=== PATIENT | female | born 1995 | race Caucasian/White ===

== ENCOUNTER 2017-02-09 11:47 | Emergency (ER) | payer SELFPAY ==
[~2017-02-09] VITALS: Ht 172.7 cm; Wt 57.6 kg
[~2017-02-09 11:47] MED LIST: AC325T PO; ACET100V3 MC; BIRTH CONTROL PILL; METH4TAB PO; SULF1TAB38 PO
[2017-02-09] MEDS ORDERED: LIDOCAINE 1% INJ 20 ML (XYLOCAINE) VIAL INJ ONE (12:15)
[2017-02-09] MEDS ORDERED: OXYMETAZOLINE (AFRIN) 0.05% NA 15 ML BTL ONE (12:15)
[2017-02-09] MEDS ORDERED: cefTRIAXone 1 GM (ROCEPHIN) VIAL IM ONE (12:15)
[2017-02-09] MEDS ORDERED: CEFD300C3 PO (12:15)
--- NOTE | 2017-02-09 12:15 | ED Cough/URI ---
General Chief Complaint: Cough/Cold/Flu Symptoms Stated Complaint: SINUS CONGESTION EARACHE SORE THROAT Nursing Triage Note: ARRIVED VIA AMB TO ROOM 05. STATES SHE HAS BEEN DEALING WITH A SINUS INFECTION FOR OVER 1 WEEK. COMPLAINS OF HEADACHE, EARACHE, AND NECK PAIN WHEN SHE TURNS HER HEAD. DENIES FEVER. Source: patient Exam Limitations: no limitations History of Present Illness Time seen by provider: 11:58 Initial Comments 21-year-old female patient presents to the emergency department with complaints of a sinus infection for approximately one week. States she has had green nasal drainage. Also reports left ear pain, headache, and now beginning to have mild neck pain. Denies fever, chills, shortness of air, difficulty swallowing, difficulty breathing, nausea, vomiting, or diarrhea. Timing/Duration: week, getting worse Severity/Quality: moderate, dry cough Prior Episodes/Possible Cause: no prior episodes Modifying Factors: Worse With Coughing Allergies and Home Medications Allergies Coded Allergies: No Known Drug Allergies (Unverified , 11/28/11) Home Medications Cefdinir 300 Mg Capsule, 300 MG PO BID, #20 Ref 0 Prescribed by: KARRIE LAWSON on 02/09/17 1215 Constitutional: No chills, No dizziness, No fever, malaise EENTM: ear pain, nose congestion, nose pain, see HPI, No ear discharge, No mouth pain, No throat pain Respiratory: cough, No phlegm, No short of breath Cardiovascular: no symptoms reported Gastrointestinal: No abdominal pain, No diarrhea, No nausea, No vomiting Genitourinary: no symptoms reported Musculoskeletal: see HPI, No back pain, neck pain Skin: no symptoms reported Psychiatric/Neurological: Headache All Other Systems Reviewed Negative Unless Noted: Yes (Negative excepted noted.) Past Cszyiez-Njdaws-Vahzlw Hx Patient Social History Alcohol Use: Rarely Uses Recreational Drug Use: No Smoking Status: Current Someday Smoker Type Used: Cigars Former Smoker/When Quit: Jul 23, 2015 Recent Foreign Travel: No Contact w/Someone Who Travel: No Recent Infectious Disease Expo: No Recent Hopitalizations: No Immunizations Up To Date Tetanus Booster (TDap): Unknown Seasonal Allergies Seasonal Allergies: Yes Surgeries HX Surgeries: No Respiratory Hx Respiratory Disorders: No Cardiovascular Hx Cardiac Disorders: No Neurological Hx Neurological Disorders: No Reproductive System Hx Reproductive Disorders: No Sexually Transmitted Disease: No Female Reproductive Disorders: Denies Genitourinary Hx Genitourinary Disorders: No Gastrointestinal Hx Gastrointestinal Disorders: No Musculoskeletal Hx Musculoskeletal Disorders: No Endocrine Hx Endocrine Disorders: No HEENT HX ENT Disorders: No Cancer Hx Cancer: No Psychosocial Hx Psychiatric Problems: No Integumentary HX Skin/Integumentary Disorder: No Blood Transfusions Hx Blood Disorders: No Reviewed Nursing Assessment Reviewed/Agree w Nursing PMH: Yes Family Medical History Significant Family History: No Pertinent Family Hx Physical Exam Vital Signs Vital Sign - Last 12Hours 02/09/17 11:50 Temp 99.0 Pulse 92 Resp 16 B/P (MAP) 118/77 Pulse Ox 97 O2 Delivery Room Air Capillary Refill : Less Than 3 Seconds General Appearance: WD/WN, no apparent distress HEENT: PERRL/EOMI, TMs normal, pharyngeal erythema, other (positive nasal congestion. 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 (02/09/17 21:00) Oxymetazoline 0.05% Nasal [place] (Afrin 0. (02/09/17 12:15) Medications Given in ED Current Medications Medications Dose Ordered Sig/Leonora Route Start Time Stop Time Status Last Admin Dose Admin Ceftriaxone Sodium 1,000 mg ONCE ONCE IM 02/09/17 12:15 02/09/17 12:16 DC 02/09/17 12:27 1,000 MG Lidocaine HCl 2.1 ml ONCE ONCE INJ 02/09/17 12:15 02/09/17 12:16 DC 02/09/17 12:27 2.1 ML Oxymetazoline HCl 15 ml STK-MED ONCE .ROUTE 02/09/17 12:15 02/09/17 12:18 DC 02/09/17 12:27 15 ML Vital Signs/I&O Vital Sign - Last 12Hours 02/09/17 02/09/17 02/09/17 11:50 11:50 12:57 Temp 99.0 100.3 Pulse 92 75 Resp 16 16 B/P (MAP) 118/77 Pulse Ox 97 99 O2 Delivery Room Air Blood Pressure Mean: 91 Departure Communication Progress Notes Patient seen and evaluated. Patient given 1 g Rocephin in the emergency department prior to discharge. All return precautions were discussed with the patient. Patient voices understanding and agrees with the treatment plan. Impression Impression: Primary Impression: Sinusitis, acute Qualified Codes: J01.10 - Acute frontal sinusitis, unspecified Disposition: HOME, SELF-CARE Condition: Improved Departure-Patient Inst. Decision time for Depature: 12:13 Referrals: NO,LOCAL PHYSICIAN (PCP/Family) Primary Care Physician Patient Instructions: Sinusitis, Adult (DC) Add. Discharge Instructions: All discharge instructions reviewed with patient and/or family. Voiced understanding. Medications as instructed. Tylenol Extra Strength [id number] as directed for pain or headache. Ibuprofen 800 mg by mouth every 8 hours as needed for pain or headache. Cool humidifier. Afrin [id number]-olu-mylwppa 2-3 sprays in each nostril twice daily as needed for nasal congestion. Snts-roe-dppdhzw antihistamines and cough suppressants as instructed for symptoms. Follow-up with your family practitioner for recheck if needed. Return to the emergency department for worsened symptoms or any other concerns. Scripts Cefdinir (Cefdinir) 300 Mg Capsule 300 MG PO BID, #20 CAP 0 Refills Prov: KARRIE LAWSON 02/09/17 Work/School Note: Local [employer]ing, Work Release Form Date Seen in the Emergency Department: Feb 09, 2017 Return to Work: Feb 11, 2017 Restrictions: No Restrictions KARRIE LAWSON Feb 09, 2017 12:15
[2017-02-09 12:57] VITALS: BP 119/82
[2017-02-09] MEDS ORDERED: OXYMETAZOLINE (AFRIN) 0.05% NA 15 ML BTL SCH (21:00)
== END 2017-02-09 12:57 | disposition home or self-care (01) ==
LOC: EDUNIT# 11:47 → ER 11:50
DX: J01.90 Acute sinusitis, unspecified (principal); H92.02 Otalgia, left ear; F17.210 Nicotine dependence, cigarettes, uncomplicated
CPT/HCPCS: 96372; 99282

== ENCOUNTER 2017-03-25 12:27 | Emergency (ER) | payer SELFPAY ==
[~2017-03-25] VITALS: Ht 172.7 cm; Wt 57.6 kg
[~2017-03-25 12:27] MED LIST changes: +CEFD300C3 PO
[2017-03-25 12:58] LABS: BILIRUBIN,URINE NEGATIVE (NEGATIVE); KETONES,URINE NEGATIVE (NEGATIVE); LEUKOCYTE ESTERASE ,URINE 1+ (NEGATIVE); NITRITE,URINE NEGATIVE (NEGATIVE); PH,URINE 6 (5-9); PROTEIN,URINE 1+ (NEGATIVE); UROBILINOGEN,URINE NORMAL (NORMAL)
--- NOTE | 2017-03-25 13:08 | ED GU-Female ---
General Chief Complaint: -Female Stated Complaint: POSS VAGINAL INFECTION Nursing Triage Note: PT STATES SHE FEELS SHE HAS A VAGINAL INFECTION, HX OF LAST YR, HAS AN ODOR, MORE WATERY, DENIES PAIN, MILD ITCHING STARTED YESTERDAY. Nursing Sepsis Screen: No Definite Risk Source: patient Exam Limitations: no limitations History of Present Illness Time seen by provider: 12:39 Initial Comments This 21-year-old young lady presents to the emergency room with complaint of watery vaginal discharge. She had some mild vaginal itching yesterday. Symptoms have only been present since yesterday. LMP was about one month ago. She reports being sexually active with 2 partners in the last year. She is not using barrier protection with her current boyfriend. She does have a prior history of bacterial vaginosis and chlamydia. She denies any pain, dysuria, or other symptoms. Allergies and Home Medications Allergies Coded Allergies: No Known Drug Allergies (Unverified , 11/28/11) Home Medications Cefdinir 300 Mg Capsule, 300 MG PO BID, #20 Ref 0 Prescribed by: KARRIE LAWSON on 02/09/17 1215 Metronidazole 500 Mg Tablet, 500 MG PO BID, #14 Prescribed by: JUDY HAGER on 03/25/17 1345 Constitutional: no symptoms reported EENTM: no symptoms reported Respiratory: no symptoms reported Cardiovascular: no symptoms reported Gastrointestinal: no symptoms reported Genitourinary: see HPI Musculoskeletal: no symptoms reported Skin: no symptoms reported Psychiatric/Neurological: No Symptoms Reported Endocrine: No Symptoms Reported Past Lohgbgb-Oycdmx-Efkfgx Hx Patient Social History Alcohol Use: Occasionally Uses Recreational Drug Use: Yes (THC) Smoking Status: Current Everyday Smoker Type Used: Cigarettes Former Smoker/When Quit: Jul 23, 2015 Recent Foreign Travel: No Contact w/Someone Who Travel: No Recent Infectious Disease Expo: No Recent Hopitalizations: No Immunizations Up To Date Tetanus Booster (TDap): Unknown Seasonal Allergies Seasonal Allergies: Yes Surgeries HX Surgeries: No Respiratory Hx Respiratory Disorders: No Cardiovascular Hx Cardiac Disorders: No Neurological Hx Neurological Disorders: No Reproductive System : No Hx Reproductive Disorders: No Sexually Transmitted Disease: No Female Reproductive Disorders: Denies Genitourinary Hx Genitourinary Disorders: No Gastrointestinal Hx Gastrointestinal Disorders: No Musculoskeletal Hx Musculoskeletal Disorders: No Endocrine Hx Endocrine Disorders: No HEENT HX ENT Disorders: No Cancer Hx Cancer: No Psychosocial Hx Psychiatric Problems: No Integumentary HX Skin/Integumentary Disorder: No Blood Transfusions Hx Blood Disorders: No Family Medical History Significant Family History: No Pertinent Family Hx Physical Exam Vital Signs Vital Sign - Last 12Hours 03/25/17 12:39 Temp 99.0 Pulse 84 Resp 20 B/P (MAP) 122/90 Pulse Ox 98 O2 Delivery Room Air Capillary Refill : Less Than 3 Seconds General Appearance: WD/WN, no apparent distress Respiratory: respiratory distress Gastrointestinal: non tender, soft Genital/Rectal: normal genital exam, normal vaginal exam, No tenderness Extremities: normal inspection, no pedal edema 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, no motor/sensory deficits, alert, normal mood/affect, oriented x 3 Skin: normal color, warm/dry Progress/Results/Core Measures Results/Orders Lab Results Laboratory Tests Test 03/25/17 12:45 03/25/17 13:04 Range/Units Urine Color YELLOW Urine Clarity CLEAR Urine pH 6 5-9 Urine Specific Pope 1.020 1.016-1.022 Urine Protein 1+ H NEGATIVE Urine Glucose (UA) NEGATIVE NEGATIVE Urine Ketones NEGATIVE NEGATIVE Urine Nitrite NEGATIVE NEGATIVE Urine Bilirubin NEGATIVE NEGATIVE Urine Urobilinogen NORMAL NORMAL MG/DL Urine Leukocyte Esterase 1+ H NEGATIVE Urine RBC (Auto) 1+ H NEGATIVE Urine RBC NONE /HPF Urine WBC 2-5 /HPF Urine Squamous Epithelial Cells 10-25 H /HPF Urine Crystals NONE /LPF Urine Bacteria TRACE /HPF Urine Casts PRESENT /LPF Urine Hyaline Casts 2-5 H /LPF Urine Mucus SMALL H /LPF Urine Culture Indicated NO Micro Results Microbiology 03/25/17 Genital Culture, Resulted Pending 03/25/17 EPHRAIM Preparation - Final, Resulted 03/25/17 Wet Prep - Final, Resulted My Orders Orders - JUDY MOORE MD Ua Culture If Indicated (03/25/17 12:38) Wet Prep (03/25/17 12:45) Neisseria Gonorrhea Dna (03/25/17 12:45) Chlamydia Dna (03/25/17 12:45) Genital Culture (03/25/17 12:45) Ephraim Prep (03/25/17 12:45) Urine Bedside (03/25/17 12:45) Vital Signs/I&O Vital Sign - Last 12Hours 03/25/17 12:39 Temp 99.0 Pulse 84 Resp 20 B/P (MAP) 122/90 Pulse Ox 98 O2 Delivery Room Air Blood Pressure Mean: 101 Progress Note : Time: 13:08 Progress Note Pelvic exam performed and unremarkable. Urine test negative. Preliminary vaginal specimens pending. Departure Impression Impression: Primary Impression: Bacterial vaginosis Disposition: HOME, SELF-CARE Condition: Stable Departure-Patient Inst. Decision time for Depature: 13:44 Referrals: NO,LOCAL PHYSICIAN (PCP/Family) Primary Care Physician Patient Instructions: Bacterial Vaginosis (DC) Add. Discharge Instructions: Complete your antibiotic as prescribed. Follow-up on the final vaginal cultures by contacting the ER or your doctor early next week. Return to the ER. Worsening symptoms. No intercourse or anything intravaginally until final cultures are known. All discharge instructions reviewed with patient and/or family. Voiced understanding. Scripts Metronidazole (Flagyl) 500 Mg Tablet 500 MG PO BID, #14 TAB Prov: JUDY MOORE MD 03/25/17 JUDY MOORE MD Mar 25, 2017 13:08
[2017-03-25] MEDS ORDERED: METR500T PO (13:45)
[2017-03-25 13:53] VITALS: BP 112/84
== END 2017-03-25 13:53 | disposition home or self-care (01) ==
LOC: EDUNIT# 12:27 → ER 12:30
DX: N76.0 Acute vaginitis (principal); F17.210 Nicotine dependence, cigarettes, uncomplicated
CPT/HCPCS: 36415; 81000; 84703; 87070; 87210; 87491; 87591; 99285

== ENCOUNTER 2017-11-10 12:17 | Inpatient (IN) | payer SELFPAY ==
[2017-11-10] VITALS (10 sets, daily range): BP systolic 105–129; BP diastolic 69–93
[~2017-11-10] VITALS: Ht 170.2 cm; Wt 59.0 kg
[~2017-11-10 12:17] MED LIST changes: +METR500T PO
--- OUTSIDE RECORDS SUMMARY | 2017-11-10 12:24 | XMS REPORT ---
Author Author TOMASA BROWN [facility] Address [address] [place] [address] Care Team Providers Care Office Messenger Name Role Phone TOMASA BROWN Unavailable PROBLEMS Type Condition ICD9-CM Code [id number] Code Onset Dates Condition Status SNOMED Code Problem Major depressive disorder F32.9 Active 668099452 Problem History of liver failure Z87.19 Active 027167354 ALLERGIES Unknown Allergies SOCIAL HISTORY No smoking Hx information available PLAN OF CARE VITAL SIGNS MEDICATIONS Medication Instructions Dosage Frequency Start Date End Date Duration Status Flagyl 500 MG Orally twice a day 1 tablet 12h Oct, Oct, 7 days Active RESULTS No Results PROCEDURES No Known procedures IMMUNIZATIONS No Known Immunizations
--- OUTSIDE RECORDS SUMMARY | 2017-11-10 12:24 | XMS REPORT | Clinical Summary ---
Author Author [facility] Organization [facility] Address Unknown Phone Unavailable Care Team Providers Care Sales Agent Protective Service Name Role Phone PCP Unavailable Source Comments Some departments are not documenting in the electronic medical record. If you do not see the information that you expected, contact Release of Information in the Health Information Management department at [phone] for further assistance in locating additional records.[facility] Allergies No Known Allergies Current Medications Prescription Sig. Disp. Refills Start End Date Status Date citalopram (CELEXA) 10 mg Take 1 Tab by mouth 90 Tab 3 09/06/20 Active tablet daily. 15 Active Problems Problem Noted Date Major depressive disorder 09/02/2015 Major depressive disorder, single episode, severe (HCC) 08/29/2015 Resolved Problems Problem Noted Date Resolved Date Tylenol ingestion 08/29/2015 09/02/2015 Major depressive disorder, recurrent episode, severe (HCC) 08/29/201503/2015 Social History Tobacco Use Types Packs/Day Years Used Date Never Assessed Sex Assigned at Date Recorded Not on file Last Filed Vital Signs Vital Sign Reading Time Taken Blood Pressure 121/74 09/06/2015 9:00 AM AUDIO DIRECTOR Pulse 82 09/06/2015 9:00 AM AUDIO DIRECTOR Temperature 36.9 C (98.4 F) 09/06/2015 9:00 AM AUDIO DIRECTOR Respiratory Rate - - Oxygen Saturation 100% 09/06/2015 9:00 AM AUDIO DIRECTOR Inhaled Oxygen - - Concentration Weight 59.6 kg (131 lb 8 oz) 09/02/2015 5:35 PM AUDIO DIRECTOR Height 170.2 cm (5' 7") 09/02/2015 5:35 PM AUDIO DIRECTOR Body Mass Index 20.6 09/02/2015 5:35 PM AUDIO DIRECTOR Plan of Treatment Health Maintenance Due Date Last Done Comments PHYSICAL (COMPREHENSIVE) 2003 EXAM HPV VACCINES (1 of 3 - 2007 Female 3 Dose Series) PERTUSSIS VACCINE 2007 TETANUS VACCINE 2013 INFLUENZA VACCINE 05/24/2017 CERVICAL CANCER SCREENING 2017 Results Not on filefrom Last 3 Months
--- OUTSIDE RECORDS SUMMARY | 2017-11-10 12:24 | XMS REPORT ---
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
--- OUTSIDE RECORDS SUMMARY | 2017-11-10 12:24 | XMS REPORT ---
Author Author TOMASA BROWN Organization [facility] Address [address] [place] [address] Care Team Providers Care Ladderman Name Role Phone TOMASA BROWN Unavailable PROBLEMS Type Condition ICD9-CM Code [id number] Code Onset Dates Condition Status SNOMED Code Problem Major depressive disorder F32.9 Active 015810420 Problem History of liver failure Z87.19 Active 122811617 ALLERGIES No Known Allergies SOCIAL HISTORY Never Assessed PLAN OF CARE Activity Details Follow Up 1 Year with [facility] for [employer] and pap Reason: VITAL SIGNS Height 67 in 2016-11-15 Weight 127.0 lbs 2016-11-15 Temperature 98.4 degrees Fahrenheit 2016-11-15 Heart Rate 70 bpm 2016-11-15 Respiratory Rate 16 2016-11-15 BMI 19.89 kg/m2 2016-11-15 Blood pressure systolic 110 mmHg 2016-11-15 Blood pressure diastolic 72 mmHg 2016-11-15 MEDICATIONS Medication Instructions Dosage Frequency Start Date End Date Duration Status Ortho Tri-Cyclen (28) 0.18/0.215/0.25 MG-35 MCG Orally Once a day 1 tablet 24h Oct, 28 day(s) Active Diflucan 150 MG Orally once 1 tablet today then again in 3 days if symptoms do not improve Oct, Oct, 1 day Active RESULTS Name Result Date Reference Range TRICHOMONAS (IN HOUSE) 2016-11-15 TRICHOMONAS Negative Control + Lot # [id number] Exp date 12/21/2017 BACTERIAL VAGINOSIS (IN HOUSE) 2016-11-15 RESULTS Positive Control + Lot # [id number] Exp date CULTURE, GENITAL 2016-11-15 Genital Culture, Routine Final report Result 1 GC/CHLAM PROBE (STATE) 2016-11-15 CHLAMYDIA positive GC negative PROCEDURES Procedure Date Ordered Result Body Site No Charge Nov 15, 2016 IBANEZ VAG, DNA, DIR PROBE Nov 15, 2016 CULTURE, BACTERIA, OTHER Nov 15, 2016 TRICHOMONAS ASSAY W/OPTIC Nov 15, 2016 IMMUNIZATIONS No Known Immunizations MEDICAL (GENERAL) HISTORY Type Description Date Medical History irritable bowel syndrome Medical History depression Medical History anxiety
--- OUTSIDE RECORDS SUMMARY | 2017-11-10 12:24 | XMS REPORT | Continuity of Care Document ---
Author Author [employer] Organization [facility] Address Unknown Phone Unavailable Care Team Providers Care Grain Operator Name Role Phone [employer] Unavailable Unavailable Problems Medications Allergies, Adverse Reactions, Alerts Immunizations Results Vital Signs Encounters Location Location Details Encounter Type Encounter Number Reason For Visit Attending Provider ADM Date DC Date Status Source O Active [facility] Procedures Plan of Care Social History Assessment and Plan Family History Advance Directives Functional Status
--- OUTSIDE RECORDS SUMMARY | 2017-11-10 12:26 | XMS REPORT | Continuity of Care Document ---
Author Author [facility] Address Unknown Phone Unavailable Allergies Active Description Code Type Severity Reaction Onset Reported/Identified Relationship to Patient Clinical Status Yes No Known Drug Allergies [id number] Drug Allergy Unknown N/A 11/28/2011 Medications There is no data. Problems Date Dx Coded Attending Type Code Diagnosis Diagnosed By 12/26/2008 IVA JOSE DO V20.2 Preventive Medicine New Patient Evaluation Childhood 03-0312/26/2008 IVA JOSE DO V20.2 Preventive Medicine New Patient Evaluation Childhood 03-0312/26/2008 V20.2 Preventive Medicine New Patient Evaluation Childhood 03-0312/26/2008 V20.2 Preventive Medicine New Patient Evaluation Childhood 03-0312/26/2008 V20.2 Preventive Medicine New Patient Evaluation Childhood 03-0312/26/2008 V20.2 Preventive Medicine New Patient Evaluation Childhood 03-0312/26/2008 IVA JOSE DO V20.2 Preventive Medicine New Patient Evaluation Childhood 03-0312/26/2008 GEREMIAS SOLORZANO APRN V20.2 Preventive Medicine New Patient Evaluation Childhood 03-0312/26/2008 VISH MARTINEZ MD V20.2 Preventive Medicine New Patient Evaluation Childhood 03-0312/26/2008 IVA JOSE DO V20.2 Preventive Medicine New Patient Evaluation Childhood 03-0312/26/2008 IVA JOSE DO V20.2 Preventive Medicine New Patient Evaluation Childhood 03-0312/26/2008 JUAN BARROS, VISH V20.2 Preventive Medicine New Patient Evaluation Childhood 03-0312/26/2008 PEBBLES JORGE APRN V20.2 Preventive Medicine New Patient Evaluation Childhood 03-0312/26/2008 RUFINA HILLS APRN V20.2 Preventive Medicine New Patient Evaluation Childhood 03-0312/26/2008 NYA ACE APRN V20.2 Preventive Medicine New Patient Evaluation Childhood 03-0312/26/2008 TAMMIE MEADOWS LCPC V20.2 Preventive Medicine New Patient Evaluation Childhood -12/26/2008 GEREMIAS SOLORZANO APRN V20.2 Preventive Medicine New Patient Evaluation Childhood 03-0312/26/2008 JAYNA ROSE, JENNIFER A V20.2 Preventive Medicine New Patient Evaluation Childhood 03-0312/26/2008 JAYNA ROSE, JENNIFER A V20.2 Preventive Medicine New Patient Evaluation Childhood 03-0303/04/2009 GIOVANA JOSE DOA K 034.0 Pharyngitis Streptococcus, Group A: Beta Hemolytic 03/04/2009 DAMON PERDUE IVA K 382.00 Otitis Media Acute Suppurative Left Ear 03/04/2009 DAMON PERDUE IVA K 034.0 Pharyngitis Streptococcus, Group A: Beta Hemolytic 03/04/2009 GIOVANA JOSE DOA K 382.00 Otitis Media Acute Suppurative Left Ear 03/04/2009 034.0 Pharyngitis Streptococcus, Group A: Beta Hemolytic 03/04/2009 382.00 Otitis Media Acute Suppurative Left Ear 03/04/2009 034.0 Pharyngitis Streptococcus, Group A: Beta Hemolytic 03/04/2009 382.00 Otitis Media Acute Suppurative Left Ear 03/04/2009 034.0 Pharyngitis Streptococcus, Group A: Beta Hemolytic 03/04/2009 382.00 Otitis Media Acute Suppurative Left Ear 03/04/2009 034.0 Pharyngitis Streptococcus, Group A: Beta Hemolytic 03/04/2009 382.00 Otitis Media Acute Suppurative Left Ear 03/04/2009 GIOVANA JOSE DOA K 034.0 Pharyngitis Streptococcus, Group A: Beta Hemolytic 03/04/2009 GIOVANA JOSE DOA K 382.00 Otitis Media Acute Suppurative Left Ear 03/04/2009 GEREMIAS SOLORZANO APRN 034.0 Pharyngitis Streptococcus, Group A: Beta Hemolytic 03/04/2009 GEREMIAS SOLORZANO APRN 382.00 Otitis Media Acute Suppurative Left Ear 03/04/2009 VISH MARTINEZ MD 034.0 Pharyngitis Streptococcus, Group A: Beta Hemolytic 03/04/2009 VISH MARTINEZ MD 382.00 Otitis Media Acute Suppurative Left Ear 03/04/2009 IVA JOSE DO K 034.0 Pharyngitis Streptococcus, Group A: Beta Hemolytic 03/04/2009 JOSE , IVA K 382.00 Otitis Media Acute Suppurative Left Ear 03/04/2009 JOSE , IVA K 034.0 Pharyngitis Streptococcus, Group A: Beta Hemolytic 03/04/2009 JOSE DO, IVA K 382.00 Otitis Media Acute Suppurative Left Ear 03/04/2009 VISH MARTINEZ MD 034.0 Pharyngitis Streptococcus, Group A: Beta Hemolytic 03/04/2009 JUAN BARROS, VISH 382.00 Otitis Media Acute Suppurative Left Ear 03/04/2009 LUISITO LARGE ANIMAL VETERINARIAN, PEBBLES S 034.0 Pharyngitis Streptococcus, Group A: Beta Hemolytic 03/04/2009 LUISITO LARGE ANIMAL VETERINARIAN, PEBBLES S 382.00 Otitis Media Acute Suppurative Left Ear 03/04/2009 RAJOTTE LARGE ANIMAL VETERINARIAN, RUFINA A 034.0 Pharyngitis Streptococcus, Group A: Beta Hemolytic 03/04/2009 RAJOTTE LARGE ANIMAL VETERINARIAN, RUFINA A 382.00 Otitis Media Acute Suppurative Left Ear 03/04/2009 DB LARGE ANIMAL VETERINARIAN, NYA R 034.0 Pharyngitis Streptococcus, Group A: Beta Hemolytic 03/04/2009 DB LARGE ANIMAL VETERINARIAN, NYA R 382.00 Otitis Media Acute Suppurative Left Ear 03/04/2009 ABDIEL SPINNER CONCRETE PIPE, TAMMIE B 034.0 Pharyngitis Streptococcus, Group A: Beta Hemolytic 03/04/2009 ABDIEL SPINNER CONCRETE PIPE, TAMMIE B 382.00 Otitis Media Acute Suppurative Left Ear 03/04/2009 JEANINE LARGE ANIMAL VETERINARIAN, GEREMIAS R 034.0 Pharyngitis Streptococcus, Group A: Beta Hemolytic 03/04/2009 SOLORZANO LARGE ANIMAL VETERINARIAN, GEREMIAS R 382.00 Otitis Media Acute Suppurative Left Ear 03/04/2009 JAYNA LARGE ANIMAL VETERINARIAN, JENNIFER A 034.0 Pharyngitis Streptococcus, Group A: Beta Hemolytic 03/04/2009 JAYNA LARGE ANIMAL VETERINARIAN, JENNIFER A 382.00 Otitis Media Acute Suppurative Left Ear 03/04/2009 JAYNA LARGE ANIMAL VETERINARIAN, JENNIFER A 034.0 Pharyngitis Streptococcus, Group A: Beta Hemolytic 03/04/2009 JAYNA LARGE ANIMAL VETERINARIAN, JENNIFER A 382.00 Otitis Media Acute Suppurative Left Ear 06/06/2009 JOSE DO IVA K NODX No Diagnosis 06/06/2009 IVA JOSE DO K NODX No Diagnosis 06/06/2009 NODX No Diagnosis 06/06/2009 NODX No Diagnosis 06/06/2009 NODX No Diagnosis 06/06/2009 NODX No Diagnosis 06/06/2009 DAMON PERDUE, IVA K NODX No Diagnosis 06/06/2009 JEANINE LARGE ANIMAL VETERINARIAN, GEREMIAS R NODX No Diagnosis 06/06/2009 JUAN BARROS, VISH NODX No Diagnosis 06/06/2009 DAMON PERDUE, IVA K NODX No Diagnosis 06/06/2009 DAMON PERDUE, IVA K NODX No Diagnosis 06/06/2009 JUAN BARROS, VISH NODX No Diagnosis 06/06/2009 LUISITO LARGE ANIMAL VETERINARIAN, PEBBLES S NODX No Diagnosis 06/06/2009 REINIER LARGE ANIMAL VETERINARIAN, RUFINA A NODX No Diagnosis 06/06/2009 DB LARGE ANIMAL VETERINARIAN, NYA R NODX No Diagnosis 06/06/2009 ABDIEL SEVILLAPC, TAMMIE B NODX No Diagnosis 06/06/2009 JEANINE LARGE ANIMAL VETERINARIAN, GEREMIAS R NODX No Diagnosis 06/06/2009 JAYNA LARGE ANIMAL VETERINARIAN, JENNIFER A NODX No Diagnosis 06/06/2009 JAYNA LARGE ANIMAL VETERINARIAN, JENNIFER A NODX No Diagnosis 07/21/2009 DAMON DO IVA Polo V03.89 Meningococcal, Other Specified Single Bacterial Disease 07/21/2009 JOSE IVA PERDUE V06.5 Dt, Tetanus-diphtheria [td] ,tdap 07/21/2009 DAMON DO IVA Polo V03.89 Meningococcal, Other Specified Single Bacterial Disease 07/21/2009 JOSE IVA PERDUE V06.5 Dt, Tetanus-diphtheria [td] ,tdap 07/21/2009 V03.89 Meningococcal , Other Specified Single Bacterial Disease 07/21/2009 V06.5 Dt, Tetanus- diphtheria [td] ,tdap 07/21/2009 V03.89 Meningococcal , Other Specified Single Bacterial Disease 07/21/2009 V06.5 Dt, Tetanus- diphtheria [td] ,tdap 07/21/2009 V03.89 Meningococcal , Other Specified Single Bacterial Disease 07/21/2009 V06.5 Dt, Tetanus- diphtheria [td] ,tdap 07/21/2009 V03.89 Meningococcal , Other Specified Single Bacterial Disease 07/21/2009 V06.5 Dt, Tetanus- diphtheria [td] ,tdap 07/21/2009 IVA JOSE DO V03.89 Meningococcal, Other Specified Single Bacterial Disease 07/21/2009 DAMON PERDUE IVA K V06.5 Dt, Tetanus-diphtheria [td] ,tdap 07/21/2009 GEREMIAS SOLORZANO APRN R V03.89 Meningococcal, Other Specified Single Bacterial Disease 07/21/2009 JEANINE SHAVERN, GEREMIAS R V06.5 Dt, Tetanus-diphtheria [td] ,tdap 07/21/2009 JUAN BARROS, VISH V03.89 Meningococcal, Other Specified Single Bacterial Disease 07/21/2009 JUAN BARROS, VISH V06.5 Dt, Tetanus-diphtheria [td] ,tdap 07/21/2009 IVA JOSE DO K V03.89 Meningococcal, Other Specified Single Bacterial Disease 07/21/2009 IVA JOSE DO K V06.5 Dt, Tetanus-diphtheria [td] ,tdap 07/21/2009 IVA JOSE DO V03.89 Meningococcal, Other Specified Single Bacterial Disease 07/21/2009 GIOVANA JOSE DOA K V06.5 Dt, Tetanus-diphtheria [td] ,tdap 07/21/2009 VISH MARTINEZ MD V03.89 Meningococcal, Other Specified Single Bacterial Disease 07/21/2009 ILIANA MARTINEZ MDISTA V06.5 Dt, Tetanus-diphtheria [td] ,tdap 07/21/2009 PEBBLES JORGE APRN S V03.89 Meningococcal, Other Specified Single Bacterial Disease 07/21/2009 LUISITO ROSE, PEBBLES S V06.5 Dt, Tetanus-diphtheria [td] ,tdap 07/21/2009 REINIER ROSE, RUFINA A V03.89 Meningococcal, Other Specified Single Bacterial Disease 07/21/2009 REINIER LARGE ANIMAL VETERINARIAN, RUFINA A V06.5 Dt, Tetanus-diphtheria [td] ,tdap 07/21/2009 DB SHAVERN, NYA R V03.89 Meningococcal, Other Specified Single Bacterial Disease 07/21/2009 DB SHAVERN, NYA R V06.5 Dt, Tetanus-diphtheria [td] ,tdap 07/21/2009 ABDIEL SPINNER CONCRETE PIPE, TAMMIE B V03.89 Meningococcal, Other Specified Single Bacterial Disease 07/21/2009 ABDIEL SPINNER CONCRETE PIPE, TAMMIE B V06.5 Dt, Tetanus-diphtheria [td] ,tdap 07/21/2009 SOLORZANO LARGE ANIMAL VETERINARIAN, GEREMIAS R V03.89 Meningococcal, Other Specified Single Bacterial Disease 07/21/2009 SOLORZANO LARGE ANIMAL VETERINARIAN, GEREMIAS R V06.5 Dt, Tetanus-diphtheria [td] ,tdap 07/21/2009 JAYNA LARGE ANIMAL VETERINARIAN, JENNIFER A V03.89 Meningococcal, Other Specified Single Bacterial Disease 07/21/2009 JAYNA LARGE ANIMAL VETERINARIAN, JENNIFER A V06.5 Dt, Tetanus-diphtheria [td] ,tdap 07/21/2009 JAYNA LARGE ANIMAL VETERINARIAN, JENNIFER A V03.89 Meningococcal, Other Specified Single Bacterial Disease 07/21/2009 JAYNA LARGE ANIMAL VETERINARIAN, JENNIFER A V06.5 Dt, Tetanus-diphtheria [td] ,tdap 09/10/2010 IVA JOSE DO 626.2 MENORRHAGIA 09/10/2010 IVA JOSE DO 706.1 OTHER ACNE 09/10/2010 IVA JOSE DO V25.01 General Counseling On Prescription Of Oral Contraceptives 09/10/2010 IVA JOSE DO 626.2 MENORRHAGIA 09/10/2010 IVA JOSE DO 706.1 OTHER ACNE 09/10/2010 IVA JOSE DO V25.01 General Counseling On Prescription Of Oral Contraceptives 09/10/2010 626.2 MENORRHAGIA 09/10/2010 706.1 OTHER ACNE 09/10/2010 V25.01 General Counseling On Prescription Of Oral Contraceptives 09/10/2010 626.2 MENORRHAGIA 09/10/2010 706.1 OTHER ACNE 09/10/2010 V25.01 General Counseling On Prescription Of Oral Contraceptives 09/10/2010 626.2 MENORRHAGIA 09/10/2010 706.1 OTHER ACNE 09/10/2010 V25.01 General Counseling On Prescription Of Oral Contraceptives 09/10/2010 626.2 MENORRHAGIA 09/10/2010 706.1 OTHER ACNE 09/10/2010 V25.01 General Counseling On Prescription Of Oral Contraceptives 09/10/2010 JOSE DO, IVA K 626.2 MENORRHAGIA 09/10/2010 JOSE DO IVA K 706.1 OTHER ACNE 09/10/2010 JOSE DO IVA K V25.01 General Counseling On Prescription Of Oral Contraceptives 09/10/2010 SOLORZANO LARGE ANIMAL VETERINARIAN, GEREMIAS R 626.2 MENORRHAGIA 09/10/2010 SOLORZANO LARGE ANIMAL VETERINARIAN, GEREMIAS R 706.1 OTHER ACNE 09/10/2010 SOLORZANO LARGE ANIMAL VETERINARIAN, GEREMIAS R V25.01 General Counseling On Prescription Of Oral Contraceptives 09/10/2010 JUAN BARROS VISH 626.2 MENORRHAGIA 09/10/2010 JUAN BARROS VISH 706.1 OTHER ACNE 09/10/2010 JUAN BARROS, VISH V25.01 General Counseling On Prescription Of Oral Contraceptives 09/10/2010 GIOVANA JOSE DOA K 626.2 MENORRHAGIA 09/10/2010 GIOVANA JOSE DOA K 706.1 OTHER ACNE 09/10/2010 GIOVANA JOSE DOA K V25.01 General Counseling On Prescription Of Oral Contraceptives 09/10/2010 IVA JOSE DO K 626.2 MENORRHAGIA 09/10/2010 GIOVANA JOSE DOA K 706.1 OTHER ACNE 09/10/2010 GIOVANA JOSE DOA K V25.01 General Counseling On Prescription Of Oral Contraceptives 09/10/2010 JUAN BARROS VISH 626.2 MENORRHAGIA 09/10/2010 JUAN BARROS, VISH 706.1 OTHER ACNE 09/10/2010 JUAN BARROS, VISH V25.01 General Counseling On Prescription Of Oral Contraceptives 09/10/2010 LUISITO ROSE PEBBLES S 626.2 MENORRHAGIA 09/10/2010 LUISITO ROSE PEBBLES S 706.1 OTHER ACNE 09/10/2010 LUISITO ROSE PEBBLES S V25.01 General Counseling On Prescription Of Oral Contraceptives 09/10/2010 REINIER ROSE RUFINA A 626.2 MENORRHAGIA 09/10/2010 RAJTATO ROSE RUFINA A 706.1 OTHER ACNE 09/10/2010 RAJARLETE LARGE ANIMAL VETERINARIAN, RUFINA A V25.01 General Counseling On Prescription Of Oral Contraceptives 09/10/2010 NYA ACE APRN R 626.2 MENORRHAGIA 09/10/2010 DB LARGE ANIMAL VETERINARIAN, NYA R 706.1 OTHER ACNE 09/10/2010 DB LARGE ANIMAL VETERINARIAN, NYA R V25.01 General Counseling On Prescription Of Oral Contraceptives 09/10/2010 ABDIEL SPINNER CONCRETE PIPE, TAMMIE B 626.2 MENORRHAGIA 09/10/2010 ABDIEL SPINNER CONCRETE PIPE, TAMMIE B 706.1 OTHER ACNE 09/10/2010 ABDIEL SPINNER CONCRETE PIPE, TAMMIE B V25.01 General Counseling On Prescription Of Oral Contraceptives 09/10/2010 SOLORZANO LARGE ANIMAL VETERINARIAN, GEREMIAS R 626.2 MENORRHAGIA 09/10/2010 SOLORZANO LARGE ANIMAL VETERINARIAN, GEREMIAS R 706.1 OTHER ACNE 09/10/2010 SOLORZANO LARGE ANIMAL VETERINARIAN, GEREMIAS R V25.01 General Counseling On Prescription Of Oral Contraceptives 09/10/2010 JAYNA LARGE ANIMAL VETERINARIAN, JENNIFER A 626.2 MENORRHAGIA 09/10/2010 JAYNA LARGE ANIMAL VETERINARIAN, JENNIFER A 706.1 OTHER ACNE 09/10/2010 JAYNA LARGE ANIMAL VETERINARIAN, JENNIFER A V25.01 General Counseling On Prescription Of Oral Contraceptives 09/10/2010 JAYNA LARGE ANIMAL VETERINARIAN, JENNIFER A 626.2 MENORRHAGIA 09/10/2010 JAYNA LARGE ANIMAL VETERINARIAN, JENNIFER A 706.1 OTHER ACNE 09/10/2010 JAYNA LARGE ANIMAL VETERINARIAN, JENNIFER A V25.01 General Counseling On Prescription Of Oral Contraceptives 09/24/2010 IVA JOSE DO 008.8 Intestinal Infection Due To Other Organism Not Elsewhere Classified 09/24/2010 IVA JOSE DO 008.8 Intestinal Infection Due To Other Organism Not Elsewhere Classified 09/24/2010 008.8 Intestinal Infection Due To Other Organism Not Elsewhere Classified 09/24/2010 008.8 Intestinal Infection Due To Other Organism Not Elsewhere Classified 09/24/2010 008.8 Intestinal Infection Due To Other Organism Not Elsewhere Classified 09/24/2010 008.8 Intestinal Infection Due To Other Organism Not Elsewhere Classified 09/24/2010 IVA JOSE DO 008.8 Intestinal Infection Due To Other Organism Not Elsewhere Classified 09/24/2010 JEANINE ROSE GEREMIAS R 008.8 Intestinal Infection Due To Other Organism Not Elsewhere Classified 09/24/2010 VISH MARTINEZ MD 008.8 Intestinal Infection Due To Other Organism Not Elsewhere Classified 09/24/2010 IVA JOSE DO 008.8 Intestinal Infection Due To Other Organism Not Elsewhere Classified 09/24/2010 DAMON PERDUE IVA K 008.8 Intestinal Infection Due To Other Organism Not Elsewhere Classified 09/24/2010 VISH MARTINEZ MD 008.8 Intestinal Infection Due To Other Organism Not Elsewhere Classified 09/24/2010 PEBBLES JORGE APRN S 008.8 Intestinal Infection Due To Other Organism Not Elsewhere Classified 09/24/2010 REINIER ROSE RUFINA A 008.8 Intestinal Infection Due To Other Organism Not Elsewhere Classified 09/24/2010 DB ROSE NYA R 008.8 Intestinal Infection Due To Other Organism Not Elsewhere Classified 09/24/2010 TAMMIE MEADOWS LCPC B 008.8 Intestinal Infection Due To Other Organism Not Elsewhere Classified 09/24/2010 GEREMIAS SOLORZANO APRN R 008.8 Intestinal Infection Due To Other Organism Not Elsewhere Classified 09/24/2010 JAYNA ROSE JENNIFER A 008.8 Intestinal Infection Due To Other Organism Not Elsewhere Classified 09/24/2010 JAYNA ROSE JENNIFER A 008.8 Intestinal Infection Due To Other Organism Not Elsewhere Classified 12/24/2010 DAMON PERDUE IVA K V25.09 Contraceptive Counseling 12/24/2010 DAMON PERDUE IVA K V25.9 CONTRACEPTIVE MANAGEMENT, UNSPECIFIED 12/24/2010 JOSE DO IVA K V25.09 Contraceptive Counseling 12/24/2010 JOSE DO IVA K V25.9 CONTRACEPTIVE MANAGEMENT, UNSPECIFIED 12/24/2010 V25.09 Contraceptive Counseling 12/24/2010 V25.9 CONTRACEPTIVE MANAGEMENT, UNSPECIFIED 12/24/2010 V25.09 Contraceptive Counseling 12/24/2010 V25.9 CONTRACEPTIVE MANAGEMENT, UNSPECIFIED 12/24/2010 V25.09 Contraceptive Counseling 12/24/2010 V25.9 CONTRACEPTIVE MANAGEMENT, UNSPECIFIED 12/24/2010 V25.09 Contraceptive Counseling 12/24/2010 V25.9 CONTRACEPTIVE MANAGEMENT, UNSPECIFIED 12/24/2010 DAMON PERDUE IVA K V25.09 Contraceptive Counseling 12/24/2010 JOSE DO IVA K V25.9 CONTRACEPTIVE MANAGEMENT, UNSPECIFIED 12/24/2010 GEREMIAS SOLORZANO APRN R V25.09 Contraceptive Counseling 12/24/2010 GEREMIAS SOLORZANO APRN R V25.9 CONTRACEPTIVE MANAGEMENT, UNSPECIFIED 12/24/2010 VISH MARTINEZ MD V25.09 Contraceptive Counseling 12/24/2010 JUAN BARROS, VISH V25.9 CONTRACEPTIVE MANAGEMENT, UNSPECIFIED 12/24/2010 JOSE DO, IVA K V25.09 Contraceptive Counseling 12/24/2010 JOSE DO, IVA K V25.9 CONTRACEPTIVE MANAGEMENT, UNSPECIFIED 12/24/2010 JOSE DO, IVA K V25.09 Contraceptive Counseling 12/24/2010 JOSE DO, IVA K V25.9 CONTRACEPTIVE MANAGEMENT, UNSPECIFIED 12/24/2010 JUAN BARROS, VISH V25.09 Contraceptive Counseling 12/24/2010 JUAN BARROS, VISH V25.9 CONTRACEPTIVE MANAGEMENT, UNSPECIFIED 12/24/2010 LUISITO LARGE ANIMAL VETERINARIAN, PEBBLES S V25.09 Contraceptive Counseling 12/24/2010 LUISITO ROSE, PEBBLES S V25.9 CONTRACEPTIVE MANAGEMENT, UNSPECIFIED 12/24/2010 REINIER ROSE, RUFINA A V25.09 Contraceptive Counseling 12/24/2010 REINIER ROSE RUFINA A V25.9 CONTRACEPTIVE MANAGEMENT, UNSPECIFIED 12/24/2010 DB SHAVERN, NYA R V25.09 Contraceptive Counseling 12/24/2010 DB LARGE ANIMAL VETERINARIAN, NYA R V25.9 CONTRACEPTIVE MANAGEMENT, UNSPECIFIED 12/24/2010 ABDIEL SEVILLAPC, TAMMIE B V25.09 Contraceptive Counseling 12/24/2010 ABDIEL SPINNER CONCRETE PIPE, TAMMIE B V25.9 CONTRACEPTIVE MANAGEMENT, UNSPECIFIED 12/24/2010 JEANINE SHAVERN, GEREMIAS R V25.09 Contraceptive Counseling 12/24/2010 JEANINE LARGE ANIMAL VETERINARIAN, GEREMIAS R V25.9 CONTRACEPTIVE MANAGEMENT, UNSPECIFIED 12/24/2010 JAYNA LARGE ANIMAL VETERINARIAN, JENNIFER A V25.09 Contraceptive Counseling 12/24/2010 JAYNA LARGE ANIMAL VETERINARIAN, JENNIFER A V25.9 CONTRACEPTIVE MANAGEMENT, UNSPECIFIED 12/24/2010 JAYNA LARGE ANIMAL VETERINARIAN, JENNIFER A V25.09 Contraceptive Counseling 12/24/2010 JAYNA LARGE ANIMAL VETERINARIAN, JENNIFER A V25.9 CONTRACEPTIVE MANAGEMENT, UNSPECIFIED 12/26/2010 JOSE DO, IVA K V70.3 Sports/school Exam 12/26/2010 JOSE DO, IVA K V70.3 Sports/school Exam 12/26/2010 V70.3 Sports/school Exam 12/26/2010 V70.3 Sports/school Exam 12/26/2010 V70.3 Sports/school Exam 12/26/2010 V70.3 Sports/school Exam 12/26/2010 DAMON PERDUE, IVA K V70.3 Sports/school Exam 12/26/2010 JEANINE LARGE ANIMAL VETERINARIAN, GEREMIAS R V70.3 Sports/school Exam 12/26/2010 JUAN BARROS, VISH V70.3 Sports/school Exam 12/26/2010 IVA JOSE DO V70.3 Sports/school Exam 12/26/2010 DAMON PERDUE, IVA K V70.3 Sports/school Exam 12/26/2010 JUAN BARROS, VISH V70.3 Sports/school Exam 12/26/2010 LUISITO LARGE ANIMAL VETERINARIAN, PEBBLES S V70.3 Sports/school Exam 12/26/2010 REINIER LARGE ANIMAL VETERINARIAN, RUFINA A V70.3 Sports/school Exam 12/26/2010 DB LARGE ANIMAL VETERINARIAN, NYA R V70.3 Sports/school Exam 12/26/2010 ABDIEL PEREZ, TAMMIE B V70.3 Sports/school Exam 12/26/2010 JEANINE ROSE, GEREMIAS R V70.3 Sports/school Exam 12/26/2010 JAYNA LARGE ANIMAL VETERINARIAN, JENNIFER A V70.3 Sports/school Exam 12/26/2010 JAYNA LARGE ANIMAL VETERINARIAN, JENNIFER A V70.3 Sports/school Exam 10/12/2011 IVA JOSE DO K V01.6 Contact With Or Exposure To Venereal Diseases 10/12/2011 IVA JOSE DO K V01.6 Contact With Or Exposure To Venereal Diseases 10/12/2011 V01.6 Contact With Or Exposure To Venereal Diseases 10/12/2011 V01.6 Contact With Or Exposure To Venereal Diseases 10/12/2011 V01.6 Contact With Or Exposure To Venereal Diseases 10/12/2011 V01.6 Contact With Or Exposure To Venereal Diseases 10/12/2011 IVA JOSE DO K V01.6 Contact With Or Exposure To Venereal Diseases 10/12/2011 GEREMIAS SOLORZANO APRN R V01.6 Contact With Or Exposure To Venereal Diseases 10/12/2011 ILIANA MARTINEZ MDISTA V01.6 Contact With Or Exposure To Venereal Diseases 10/12/2011 IVA JOSE DO K V01.6 Contact With Or Exposure To Venereal Diseases 10/12/2011 JOSE DO, IVA K V01.6 Contact With Or Exposure To Venereal Diseases 10/12/2011 JUAN BARROS, VISH V01.6 Contact With Or Exposure To Venereal Diseases 10/12/2011 LUISITO LARGE ANIMAL VETERINARIAN, PEBBLES S V01.6 Contact With Or Exposure To Venereal Diseases 10/12/2011 REINIER LARGE ANIMAL VETERINARIAN, RUFINA A V01.6 Contact With Or Exposure To Venereal Diseases 10/12/2011 DB LARGE ANIMAL VETERINARIAN, NYA R V01.6 Contact With Or Exposure To Venereal Diseases 10/12/2011 ABDIEL PEREZ, TAMMIE B V01.6 Contact With Or Exposure To Venereal Diseases 10/12/2011 JEANINE LARGE ANIMAL VETERINARIAN, GEREMIAS R V01.6 Contact With Or Exposure To Venereal Diseases 10/12/2011 JAYNA LARGE ANIMAL VETERINARIAN, JENNIFER A V01.6 Contact With Or Exposure To Venereal Diseases 10/12/2011 JAYNA LARGE ANIMAL VETERINARIAN, JENNIFER A V01.6 Contact With Or Exposure To Venereal Diseases 10/27/2011 JOSE DO, IVA K 373.00 Blepharitis Unspecified 10/27/2011 JOSE DO, IAV K 373.00 Blepharitis Unspecified 10/27/2011 373.00 Blepharitis Unspecified 10/27/2011 373.00 Blepharitis Unspecified 10/27/2011 373.00 Blepharitis Unspecified 10/27/2011 373.00 Blepharitis Unspecified 10/27/2011 JOSE DO, IVA K 373.00 Blepharitis Unspecified 10/27/2011 PATRICIA SOLORZANO APRNIA R 373.00 Blepharitis Unspecified 10/27/2011 JUAN BARROS, VISH 373.00 Blepharitis Unspecified 10/27/2011 JOSE DO, IVA K 373.00 Blepharitis Unspecified 10/27/2011 JOSE DO, IVA K 373.00 Blepharitis Unspecified 10/27/2011 JUAN BARROS, VISH 373.00 Blepharitis Unspecified 10/27/2011 LUISITO LARGE ANIMAL VETERINARIAN, PEBBLES S 373.00 Blepharitis Unspecified 10/27/2011 REINIER LARGE ANIMAL VETERINARIAN, RUFINA A 373.00 Blepharitis Unspecified 10/27/2011 NYA ACE APRN R 373.00 Blepharitis Unspecified 10/27/2011 ABDIEL PEREZ TAMMIE Lio 373.00 Blepharitis Unspecified 10/27/2011 GEREMIAS SOLORZANO APRN R 373.00 Blepharitis Unspecified 10/27/2011 JAYNA APRN, JENNIFER A 373.00 Blepharitis Unspecified 10/27/2011 JAYNA LARGE ANIMAL VETERINARIAN, JENNIFER A 373.00 Blepharitis Unspecified 11/28/2011 Ot 075 INFECTIOUS MONONUCLEOSIS 11/28/2011 Ot 462 ACUTE PHARYNGITIS 12/02/2011 JOSE DO IVA K 075 MONONUCLEOSIS 12/02/2011 JOSE DO, IVA K 276.51 DEHYDRATION 12/02/2011 JOSE DO, IVA K 787.03 VOMITING ALONE 12/02/2011 JOSE DO, IVA K 075 MONONUCLEOSIS 12/02/2011 JOSE DO, IVA K 276.51 DEHYDRATION 12/02/2011 JOSE DO, IVA K 787.03 VOMITING ALONE 12/02/2011 075 MONONUCLEOSIS 12/02/2011 276.51 DEHYDRATION 12/02/2011 787.03 VOMITING ALONE 12/02/2011 075 MONONUCLEOSIS 12/02/2011 276.51 DEHYDRATION 12/02/2011 787.03 VOMITING ALONE 12/02/2011 075 MONONUCLEOSIS 12/02/2011 276.51 DEHYDRATION 12/02/2011 787.03 VOMITING ALONE 12/02/2011 075 MONONUCLEOSIS 12/02/2011 276.51 DEHYDRATION 12/02/2011 787.03 VOMITING ALONE 12/02/2011 JOSE DO, IVA K 075 MONONUCLEOSIS 12/02/2011 JOSE DO, IVA K 276.51 DEHYDRATION 12/02/2011 JOSE DO, IVA K 787.03 VOMITING ALONE 12/02/2011 GEREMIAS SOLORZANO APRN 075 MONONUCLEOSIS 12/02/2011 GEREMIAS SOLORZANO APRN 276.51 DEHYDRATION 12/02/2011 GEREMIAS SOLORZANO APRN 787.03 VOMITING ALONE 12/02/2011 VISH MARTINEZ MD 075 MONONUCLEOSIS 12/02/2011 VISH MARTINEZ MD 276.51 DEHYDRATION 12/02/2011 VISH MARTINEZ MD 787.03 VOMITING ALONE 12/02/2011 JOSE DO, IVA K 075 MONONUCLEOSIS 12/02/2011 JOSE DO, IVA K 276.51 DEHYDRATION 12/02/2011 JOSE DO, IVA K 787.03 VOMITING ALONE 12/02/2011 JOSE DO, IVA K 075 MONONUCLEOSIS 12/02/2011 JOSE DO, IVA K 276.51 DEHYDRATION 12/02/2011 JOSE DO, IVA K 787.03 VOMITING ALONE 12/02/2011 JUAN BARROS, VISH 075 MONONUCLEOSIS 12/02/2011 JUAN BARROS, VISH 276.51 DEHYDRATION 12/02/2011 JUAN BARROS, VISH 787.03 VOMITING ALONE 12/02/2011 LUISITO LARGE ANIMAL VETERINARIAN, PEBBLES S 075 MONONUCLEOSIS 12/02/2011 LUISITO SHAVERN, PEBBLES S 276.51 DEHYDRATION 12/02/2011 LUISITO ROSE, PEBBLES S 787.03 VOMITING ALONE 12/02/2011 REINIER ROSE RUFINA A 075 MONONUCLEOSIS 12/02/2011 REINIER ROSE, RUFINA A 276.51 DEHYDRATION 12/02/2011 REINIER ROSE, RUFINA A 787.03 VOMITING ALONE 12/02/2011 DB ROSE, NYA R 075 MONONUCLEOSIS 12/02/2011 DB LARGE ANIMAL VETERINARIAN, NYA R 276.51 DEHYDRATION 12/02/2011 DB SHAVERN, NYA R 787.03 VOMITING ALONE 12/02/2011 TAMMIE MEADOWS LCPC B 075 MONONUCLEOSIS 12/02/2011 ABDIEL ANA, TAMMIE B 276.51 DEHYDRATION 12/02/2011 ABDIEL PEREZ, TAMMIE B 787.03 VOMITING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
[2017-11-10] MEDS ORDERED: NS IV 1000 ML 1,000 ML IV SCH (12:30)
[2017-11-10] MEDS ORDERED: CHARCOAL/AQUEOUS 50 GM/240 ML BTL PO ONE (12:30)
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
[2017-11-10] MEDS ORDERED: LORazepam INJ 2 MG/ML (ATIVAN) VIAL IVP ONE ×4 (12:45→14:00)
[2017-11-10] MEDS ORDERED: MIDAZOLAM 5 MG/5 ML (VERSED) VIAL INJ ONE (12:49)
[2017-11-10] MEDS ORDERED: SUCCINYLCHOLINE INJ 100 MG/5 ML SYR INJ ONE (12:49)
[2017-11-10] MEDS ORDERED: fentaNYL INJECTION 100 MCG/2 ML AMP INJ ONE (12:49)
[2017-11-10] MEDS ORDERED: ETOMIDATE IV SOLN 20 MG/10 ML VIAL IV ONE (12:49)
[2017-11-10] MEDS ORDERED: PROPOFOL DRIP (ICU) 100 ML IV ONE (12:54)
[2017-11-10 12:58] LABS: BASOPHILS # (AUTO) 0.2 10^3/uL (0.0-0.1); BASOPHILS % (AUTO) 1 % (0-10); EOSINOPHILS # (AUTO) 0.3 10^3/uL (0.0-0.3); EOSINOPHILS % (AUTO) 2 % (0-10); HEMATOCRIT 37 % (35-52); HEMOGLOBIN 11.8 G/DL (11.5-16.0); LYMPHOCYTES # (AUTO) 5.9 X 10^3 (1.0-4.0); LYMPHOCYTES % (AUTO) 33 % (12-44); MEAN CORPUSCULAR HEMOGLOBIN 20 PG (25-34); MEAN CORPUSCULAR HGB CONC 32 G/DL (32-36); MEAN CORPUSCULAR VOLUME 63 FL (80-99); MEAN PLATELET VOLUME 10.8 FL (7.4-10.4); MONOCYTES # (AUTO) 1.4 X 10^3 (0.0-1.0); MONOCYTES % (AUTO) 8 % (0-12); NEUTROPHILS % (AUTO) 57 % (42-75); PLATELET COUNT 560 10^3/uL (130-400); RED BLOOD COUNT 5.91 10^6/uL (4.35-5.85); RED CELL DISTRIBUTION WIDTH 17.5 % (10.0-14.5); WHITE BLOOD COUNT 17.8 10^3/uL (4.3-11.0)
[2017-11-10 13:11] LABS: BILIRUBIN,URINE NEGATIVE (NEGATIVE); CLARITY,URINE CLEAR; COLOR,URINE YELLOW; GLUCOSE, URINE (UA) NEGATIVE (NEGATIVE); KETONES,URINE NEGATIVE (NEGATIVE); LEUKOCYTE ESTERASE ,URINE 1+ (NEGATIVE); NITRITE,URINE NEGATIVE (NEGATIVE); PH,URINE 7 (5-9); PROTEIN,URINE 1+ (NEGATIVE); UROBILINOGEN,URINE NORMAL (NORMAL)
[2017-11-10 13:12] LABS: BAND NEUTROPHILS 0 %; BASOPHILS % (MANUAL) 0 %; EOSINOPHILS % (MANUAL) 0 %; LYMPHOCYTES % (MANUAL) 42 %; MICROCYTOSIS MODERATE; MONOCYTES % (MANUAL) 3 %; NEUTROPHILS % (MANUAL) 55 %; SPHEROCYTES SLIGHT
[2017-11-10 13:13] LABS: ELLIPT/OVALOCYTES SLIGHT
[2017-11-10 13:18] LABS: ALANINE AMINOTRANSFERASE 13 U/L (0-55); ALBUMIN 5.2 GM/DL (3.2-4.5); ALKALINE PHOSPHATASE 59 U/L (40-136); BILIRUBIN,TOTAL 0.9 MG/DL (0.1-1.0); BUN/CREATININE RATIO 7; CALCIUM 10.9 MG/DL (8.5-10.1); CARBON DIOXIDE 13 MMOL/L (21-32); CHLORIDE 108 MMOL/L (98-107); CREATININE SERUM 1.14 MG/DL (0.60-1.30); GFR ESTIMATED 60; GLUCOSE 86 MG/DL (70-105); POTASSIUM 3.4 MMOL/L (3.6-5.0); SALICYLATE < 5.0 MG/DL (5.0-20.0); SODIUM 148 MMOL/L (135-145); TOTAL PROTEIN 8.6 GM/DL (6.4-8.2)
[2017-11-10 13:22] LABS: ACETAMINOPHEN < 10 UG/ML (10-30)
--- NOTE | 2017-11-10 13:29 | Diagnostic Imaging Report ---
INDICATION: Possible overdose. Intubation. COMPARISON: None. FINDINGS: Single frontal view of the chest is obtained. There is an endotracheal tube present which appears to be in good position with the tip approximately 4.5 cm above the ralph. Nasogastric tube is seen in the stomach. Heart size is normal. The pulmonary vessels appear unremarkable. There is no pneumothorax, mediastinal widening or pleural fluid. The lungs are clear. IMPRESSION: Endotracheal tube appears to be in good position. No acute cardiopulmonary abnormality is demonstrated. Dictated by: Dictated on workstation # [id number]
[2017-11-10 13:34] LABS: ABG BASE EXCESS -13.5 MMOL/L (-2.5-2.5); ABG OXYGEN SATURATION 95 % (94-100); ABG PCO2 37 MMHG (35-45); ABG PO2 86 MMHG (79-93); ABG TCO2 14.4 MMOL/L (21.0-31.0)
[2017-11-10 13:35] LABS: ABG PH 7.18 (7.37-7.43); ALLENS TEST YES-POS
[2017-11-10 13:36] LABS: PATIENT TEMP 98.9; VENTILATOR YES
[2017-11-10 13:41] LABS: AMPHETAMINE SCREEN, URINE NEGATIVE (NEGATIVE); BARBITURATE SCREEN URINE NEGATIVE (NEGATIVE); BENZODIAZEPINES SCREEN URINE NEGATIVE (NEGATIVE); CANNABINOID SCREEN, URINE POSITIVE (NEGATIVE); COCAINE SCREEN URINE NEGATIVE (NEGATIVE); METHADONE STAT NEGATIVE (NEGATIVE); METHAMPHETAMINE SCREEN URINE S NEGATIVE (NEGATIVE); OPIATE SCREEN URINE NEGATIVE (NEGATIVE); OXYCODONE STAT NEGATIVE (NEGATIVE); PROPOXYPHENE STAT NEGATIVE (NEGATIVE); TRICYCLIC ANTIDEPRESSANTS SCRE NEGATIVE (NEGATIVE)
[2017-11-10 13:43] LABS: BACTERIA,URINE NEGATIVE /HPF; SQUAMOUS EPITHELIAL CELL,UR 0-2 /HPF; WBC,URINE RARE /HPF
[2017-11-10] MEDS ORDERED: SODIUM BICARB 8.4% 50 MEQ/50 ML (ABBOTT) SYR IV ONE (13:45)
--- OUTSIDE RECORDS SUMMARY | 2017-11-10 13:53 | XMS REPORT | Continuity of Care Document ---
Author Author [employer] Organization [facility] Address Unknown Phone Unavailable Care Team Providers Care Sheriff'S Detective Name Role Phone [employer] Unavailable Unavailable Problems Medications Allergies, Adverse Reactions, Alerts Immunizations Results Vital Signs Encounters Location Location Details Encounter Type Encounter Number Reason For Visit Attending Provider ADM Date DC Date Status Source O Active [facility] Procedures Plan of Care Social History Assessment and Plan Family History Advance Directives Functional Status
--- OUTSIDE RECORDS SUMMARY | 2017-11-10 13:53 | XMS REPORT | Clinical Summary ---
Author Author [facility] Organization [facility] Address Unknown Phone Unavailable Care Team Providers Care Senior Linux Administrator Name Role Phone PCP Unavailable Source Comments Some departments are not documenting in the electronic medical record. If you do not see the information that you expected, contact Release of Information in the Health Information Management department at [phone] for further assistance in locating additional records.[facility] Allergies No Known Allergies Current Medications Prescription [...] Taken Blood Pressure 121/74 09/06/2015 9:00 AM [facility] [employer] Pulse 82 09/06/2015 9:00 AM [employer] [employer] Temperature 36.9 C (98.4 F) 09/06/2015 9:00 AM [facility] [employer] Respiratory Rate - - Oxygen Saturation 100% 09/06/2015 9:00 AM [employer] Inhaled Oxygen - - Concentration Weight 59.6 kg (131 lb 8 oz) 09/02/2015 5:35 PM [employer] Height 170.2 cm (5' 7") 09/02/2015 5:35 PM [employer] Body Mass Index 20.6 09/02/2015 5:35 PM [employer] Plan of Treatment Health Maintenance Due Date Last Done Comments PHYSICAL (COMPREHENSIVE) 2003 EXAM HPV VACCINES (1 of 3 - 2007 Female 3 Dose Series) PERTUSSIS VACCINE 2007 TETANUS VACCINE 2013 INFLUENZA VACCINE 05/24/2017 CERVICAL CANCER SCREENING 2017 Results Not on filefrom Last 3 Months
--- OUTSIDE RECORDS SUMMARY | 2017-11-10 13:55 | XMS REPORT | Continuity of Care Document ---
Author Author Formerly [facility] Address Unknown Phone Unavailable Allergies Active Description Code Type Severity Reaction Onset Reported/Identified Relationship to Patient Clinical Status Yes No Known Drug Allergies [id number] Drug Allergy Unknown N/A 11/28/2011 Medications There [...] Media Acute Suppurative Left Ear 03/04/2009 GEREMIAS SOLORZNAO APRN 034.0 Pharyngitis Streptococcus, Group A: Beta [...] Media Acute Suppurative Left Ear 03/04/2009 LUISITO MOLD FILLER AND DRAINER, PEBBLES S 034.0 Pharyngitis Streptococcus, Group A: Beta Hemolytic 03/04/2009 LUISITO MOLD FILLER AND DRAINER, PEBBLES S 382.00 Otitis Media Acute Suppurative Left Ear 03/04/2009 RAJOTTE MOLD FILLER AND DRAINER, RUFINA A 034.0 Pharyngitis Streptococcus, Group A: Beta Hemolytic 03/04/2009 RAJOTTE MOLD FILLER AND DRAINER, RUFINA A 382.00 Otitis Media Acute Suppurative Left Ear 03/04/2009 DB MOLD FILLER AND DRAINER, NYA R 034.0 Pharyngitis Streptococcus, Group A: Beta Hemolytic 03/04/2009 DB MOLD FILLER AND DRAINER, NYA R 382.00 Otitis Media Acute Suppurative Left Ear 03/04/2009 ABDIEL SLEEP LAB TECHNOLOGIST, TAMMIE B 034.0 Pharyngitis Streptococcus, Group A: Beta Hemolytic 03/04/2009 ABDIEL SLEEP LAB TECHNOLOGIST, TAMMIE B 382.00 Otitis Media Acute Suppurative Left Ear 03/04/2009 JEANINE MOLD FILLER AND DRAINER, GEREMIAS R 034.0 Pharyngitis Streptococcus, Group A: Beta Hemolytic 03/04/2009 SOLORZANO MOLD FILLER AND DRAINER, GEREMIAS R 382.00 Otitis Media Acute Suppurative Left Ear 03/04/2009 JAYNA MOLD FILLER AND DRAINER, JENNIFER A 034.0 Pharyngitis Streptococcus, Group A: Beta Hemolytic 03/04/2009 JAYNA MOLD FILLER AND DRAINER, JENNIFER A 382.00 Otitis Media Acute Suppurative Left Ear 03/04/2009 JAYNA MOLD FILLER AND DRAINER, JENNIFER A 034.0 Pharyngitis Streptococcus, Group A: Beta Hemolytic 03/04/2009 JAYNA MOLD FILLER AND DRAINER, JENNIFER A 382.00 Otitis Media Acute Suppurative Left Ear 06/06/2009 JOSE DO IVA K NODX No Diagnosis 06/06/2009 IVA JOSE DO K NODX No Diagnosis 06/06/2009 NODX No Diagnosis 06/06/2009 NODX No Diagnosis 06/06/2009 NODX No Diagnosis 06/06/2009 NODX No Diagnosis 06/06/2009 DAMON PERDUE, IVA K NODX No Diagnosis 06/06/2009 JEANINE MOLD FILLER AND DRAINER, GEREMIAS R NODX No Diagnosis 06/06/2009 JUAN BARROS, VISH NODX No Diagnosis 06/06/2009 DAMON PERDUE, IVA K NODX No Diagnosis 06/06/2009 DAMON PERDUE, IVA K NODX No Diagnosis 06/06/2009 JUAN BARROS, VISH NODX No Diagnosis 06/06/2009 LUISITO MOLD FILLER AND DRAINER, PEBBLES S NODX No Diagnosis 06/06/2009 REINIER MOLD FILLER AND DRAINER, RUFINA A NODX No Diagnosis 06/06/2009 DB MOLD FILLER AND DRAINER, NYA R NODX No Diagnosis 06/06/2009 ABDIEL SEVILLAPC, TAMMIE B NODX No Diagnosis 06/06/2009 JEANINE MOLD FILLER AND DRAINER, GEREMIAS R NODX No Diagnosis 06/06/2009 JAYNA MOLD FILLER AND DRAINER, JENNIFER A NODX No Diagnosis 06/06/2009 JAYNA MOLD FILLER AND DRAINER, JENNIFER A NODX No Diagnosis 07/21/2009 DAMON [...] Other Specified Single Bacterial Disease 07/21/2009 REINIER MOLD FILLER AND DRAINER, RUFINA A V06.5 Dt, Tetanus-diphtheria [td] ,tdap 07/21/2009 DB SHAVERN, NYA R V03.89 Meningococcal, Other Specified Single Bacterial Disease 07/21/2009 DB SHAVERN, NYA R V06.5 Dt, Tetanus-diphtheria [td] ,tdap 07/21/2009 ABDIEL SLEEP LAB TECHNOLOGIST, TAMMIE B V03.89 Meningococcal, Other Specified Single Bacterial Disease 07/21/2009 ABDIEL SLEEP LAB TECHNOLOGIST, TAMMIE B V06.5 Dt, Tetanus-diphtheria [td] ,tdap 07/21/2009 SOLORZANO MOLD FILLER AND DRAINER, GEREMIAS R V03.89 Meningococcal, Other Specified Single Bacterial Disease 07/21/2009 SOLORZANO MOLD FILLER AND DRAINER, GEREMIAS R V06.5 Dt, Tetanus-diphtheria [td] ,tdap 07/21/2009 JAYNA MOLD FILLER AND DRAINER, JENNIFER A V03.89 Meningococcal, Other Specified Single Bacterial Disease 07/21/2009 JAYNA MOLD FILLER AND DRAINER, JENNIFER A V06.5 Dt, Tetanus-diphtheria [td] ,tdap 07/21/2009 JAYNA MOLD FILLER AND DRAINER, JENNIFER A V03.89 Meningococcal, Other Specified Single Bacterial Disease 07/21/2009 JAYNA MOLD FILLER AND DRAINER, JENNIFER A V06.5 Dt, Tetanus-diphtheria [td] ,tdap [...] On Prescription Of Oral Contraceptives 09/10/2010 SOLORZANO MOLD FILLER AND DRAINER, GEREMIAS R 626.2 MENORRHAGIA 09/10/2010 SOLORZANO MOLD FILLER AND DRAINER, GEREMIAS R 706.1 OTHER ACNE 09/10/2010 SOLORZANO MOLD FILLER AND DRAINER, GEREMIAS R V25.01 General Counseling On Prescription [...] RUFINA A 706.1 OTHER ACNE 09/10/2010 RAJARLETE MOLD FILLER AND DRAINER, RUFINA A V25.01 General Counseling On Prescription Of Oral Contraceptives 09/10/2010 NYA ACE APRN R 626.2 MENORRHAGIA 09/10/2010 DB MOLD FILLER AND DRAINER, NYA R 706.1 OTHER ACNE 09/10/2010 DB MOLD FILLER AND DRAINER, NYA R V25.01 General Counseling On Prescription Of Oral Contraceptives 09/10/2010 ABDIEL SLEEP LAB TECHNOLOGIST, TAMMIE B 626.2 MENORRHAGIA 09/10/2010 ABDIEL SLEEP LAB TECHNOLOGIST, TAMMIE B 706.1 OTHER ACNE 09/10/2010 ABDIEL SLEEP LAB TECHNOLOGIST, TAMMIE B V25.01 General Counseling On Prescription Of Oral Contraceptives 09/10/2010 SOLORZANO MOLD FILLER AND DRAINER, GEREMIAS R 626.2 MENORRHAGIA 09/10/2010 SOLORZANO MOLD FILLER AND DRAINER, GEREMIAS R 706.1 OTHER ACNE 09/10/2010 SOLORZANO MOLD FILLER AND DRAINER, GEREMIAS R V25.01 General Counseling On Prescription Of Oral Contraceptives 09/10/2010 JAYNA MOLD FILLER AND DRAINER, JENNIFER A 626.2 MENORRHAGIA 09/10/2010 JAYNA MOLD FILLER AND DRAINER, JENNIFER A 706.1 OTHER ACNE 09/10/2010 JAYNA MOLD FILLER AND DRAINER, JENNIFER A V25.01 General Counseling On Prescription Of Oral Contraceptives 09/10/2010 JAYNA MOLD FILLER AND DRAINER, JENNIFER A 626.2 MENORRHAGIA 09/10/2010 JAYNA MOLD FILLER AND DRAINER, JENNIFER A 706.1 OTHER ACNE 09/10/2010 JAYNA MOLD FILLER AND DRAINER, JENNIFER A V25.01 General Counseling On Prescription [...] VISH V25.9 CONTRACEPTIVE MANAGEMENT, UNSPECIFIED 12/24/2010 LUISITO MOLD FILLER AND DRAINER, PEBBLES S V25.09 Contraceptive Counseling 12/24/2010 LUISITO ROSE, PEBBLES S V25.9 CONTRACEPTIVE MANAGEMENT, UNSPECIFIED 12/24/2010 REINIER ROSE, RUFINA A V25.09 Contraceptive Counseling 12/24/2010 REINIER ROSE RUFINA A V25.9 CONTRACEPTIVE MANAGEMENT, UNSPECIFIED 12/24/2010 DB SHAVERN, NYA R V25.09 Contraceptive Counseling 12/24/2010 DB MOLD FILLER AND DRAINER, NYA R V25.9 CONTRACEPTIVE MANAGEMENT, UNSPECIFIED 12/24/2010 ABDIEL SEVILLAPC, TAMMIE B V25.09 Contraceptive Counseling 12/24/2010 ABDIEL SLEEP LAB TECHNOLOGIST, TAMMIE B V25.9 CONTRACEPTIVE MANAGEMENT, UNSPECIFIED 12/24/2010 JEANINE SHAVERN, GEREMIAS R V25.09 Contraceptive Counseling 12/24/2010 JEANINE MOLD FILLER AND DRAINER, GEREMIAS R V25.9 CONTRACEPTIVE MANAGEMENT, UNSPECIFIED 12/24/2010 JAYNA MOLD FILLER AND DRAINER, JENNIFER A V25.09 Contraceptive Counseling 12/24/2010 JAYNA MOLD FILLER AND DRAINER, JENNIFER A V25.9 CONTRACEPTIVE MANAGEMENT, UNSPECIFIED 12/24/2010 JAYNA MOLD FILLER AND DRAINER, JENNIFER A V25.09 Contraceptive Counseling 12/24/2010 JAYNA MOLD FILLER AND DRAINER, JENNIFER A V25.9 CONTRACEPTIVE MANAGEMENT, UNSPECIFIED 12/26/2010 JOSE DO, IVA K V70.3 Sports/school Exam 12/26/2010 JOSE DO, IVA K V70.3 Sports/school Exam 12/26/2010 V70.3 Sports/school Exam 12/26/2010 V70.3 Sports/school Exam 12/26/2010 V70.3 Sports/school Exam 12/26/2010 V70.3 Sports/school Exam 12/26/2010 DAMON PERDUE, IVA K V70.3 Sports/school Exam 12/26/2010 JEANINE MOLD FILLER AND DRAINER, GEREMIAS R V70.3 Sports/school Exam 12/26/2010 JUAN BARROS, VISH V70.3 Sports/school Exam 12/26/2010 IVA JOSE DO V70.3 Sports/school Exam 12/26/2010 DAMON PERDUE, IVA K V70.3 Sports/school Exam 12/26/2010 JUAN BARROS, VISH V70.3 Sports/school Exam 12/26/2010 LUISITO MOLD FILLER AND DRAINER, PEBBLES S V70.3 Sports/school Exam 12/26/2010 REINIER MOLD FILLER AND DRAINER, RUFINA A V70.3 Sports/school Exam 12/26/2010 DB MOLD FILLER AND DRAINER, NYA R V70.3 Sports/school Exam 12/26/2010 ABDIEL PEREZ, TAMMIE B V70.3 Sports/school Exam 12/26/2010 JEANINE ROSE, GEREMIAS R V70.3 Sports/school Exam 12/26/2010 JAYNA MOLD FILLER AND DRAINER, JENNIFER A V70.3 Sports/school Exam 12/26/2010 JAYNA MOLD FILLER AND DRAINER, JENNIFER A V70.3 Sports/school Exam 10/12/2011 IVA [...] Or Exposure To Venereal Diseases 10/12/2011 LUISITO MOLD FILLER AND DRAINER, PEBBLES S V01.6 Contact With Or Exposure To Venereal Diseases 10/12/2011 REINIER MOLD FILLER AND DRAINER, RUFINA A V01.6 Contact With Or Exposure To Venereal Diseases 10/12/2011 DB MOLD FILLER AND DRAINER, NYA R V01.6 Contact With Or Exposure To Venereal Diseases 10/12/2011 ABDIEL PEREZ, TAMMIE B V01.6 Contact With Or Exposure To Venereal Diseases 10/12/2011 JEANINE MOLD FILLER AND DRAINER, GEREMIAS R V01.6 Contact With Or Exposure To Venereal Diseases 10/12/2011 JAYNA MOLD FILLER AND DRAINER, JENNIFER A V01.6 Contact With Or Exposure To Venereal Diseases 10/12/2011 JAYNA MOLD FILLER AND DRAINER, JENNIFER A V01.6 Contact With Or Exposure To Venereal Diseases 10/27/2011 JOSE DO, IVA K 373.00 Blepharitis Unspecified 10/27/2011 JOSE DO, IVA K 373.00 Blepharitis Unspecified 10/27/2011 373.00 Blepharitis [...] BARROS, VISH 373.00 Blepharitis Unspecified 10/27/2011 LUISITO MOLD FILLER AND DRAINER, PEBBLES S 373.00 Blepharitis Unspecified 10/27/2011 REINIER MOLD FILLER AND DRAINER, RUFINA A 373.00 Blepharitis Unspecified 10/27/2011 NYA ACE APRN R 373.00 Blepharitis Unspecified 10/27/2011 ABDIEL PEREZ TAMMIE Lio 373.00 Blepharitis Unspecified 10/27/2011 GEREMIAS SOLORZANO APRN R 373.00 Blepharitis Unspecified 10/27/2011 JAYAN APRN, JENNIFER A 373.00 Blepharitis Unspecified 10/27/2011 JAYNA MOLD FILLER AND DRAINER, JENNIFER A 373.00 Blepharitis Unspecified 11/28/2011 Ot [...] BARROS, VISH 787.03 VOMITING ALONE 12/02/2011 LUISITO MOLD FILLER AND DRAINER, PEBBLES S 075 MONONUCLEOSIS 12/02/2011 LUISITO SHAVERN, PEBBLES S 276.51 DEHYDRATION 12/02/2011 LUISITO ROSE, PEBBLES S 787.03 VOMITING ALONE 12/02/2011 REINIER ROSE RUFINA A 075 MONONUCLEOSIS 12/02/2011 REINIER ROSE, RUFINA A 276.51 DEHYDRATION 12/02/2011 REINIER ROSE, RUFINA A 787.03 VOMITING ALONE 12/02/2011 DB ROSE, NYA R 075 MONONUCLEOSIS 12/02/2011 DB MOLD FILLER AND DRAINER, NYA R 276.51 DEHYDRATION 12/02/2011 DB SHAVERN, NYA R 787.03 VOMITING ALONE 12/02/2011 TAMMIE MEADOWS LCPC B 075 MONONUCLEOSIS 12/02/2011 ABDIEL ANA, TAMMIE B 276.51 DEHYDRATION 12/02/2011 ABDIEL PEREZ, TAMMIE B 787.03 VOMITING ALONE 12/02/2011 PATRICIA SOLORZANO APRNIA R 075 MONONUCLEOSIS 12/02/2011 JEANINE ROSE GEREMIAS R 276.51 DEHYDRATION 12/02/2011 JEANINE ROSE GEREMIAS R 787.03 VOMITING ALONE 12/02/2011 JAYNA MOLD FILLER AND DRAINER, JENNIFER A 075 MONONUCLEOSIS 12/02/2011 JAYNA MOLD FILLER AND DRAINER, JENNIFER A 276.51 DEHYDRATION 12/02/2011 JAYNA MOLD FILLER AND DRAINER, JENNIFER A 787.03 VOMITING ALONE 12/02/2011 JAYNA MOLD FILLER AND DRAINER, JENNIFER A 075 MONONUCLEOSIS 12/02/2011 JAYNA MOLD FILLER AND DRAINER, JENNIFER A 276.51 DEHYDRATION 12/02/2011 JAYNA MOLD FILLER AND DRAINER, JENNIFER A 787.03 VOMITING ALONE 07/06/2012 Ot [...] MYALGIA AND MYOSITIS UNSPECIFIED 07/07/2012 REINIER ROSE RUFINA A 682.9 CELLULITIS AND ABSCESS OF UNSPECIFIED SITES 07/07/2012 REINIER ROSE RUFINA A 729.1 MYALGIA AND MYOSITIS UNSPECIFIED 07/07/2012 DB ROSE NYA R 682.9 CELLULITIS AND ABSCESS OF UNSPECIFIED SITES 07/07/2012 DB MOLD FILLER AND DRAINER, NYA R 729.1 MYALGIA AND MYOSITIS UNSPECIFIED [...] APRN R 558.9 GASTROENTERITIS NONINFECTIOUS 08/02/2013 JAYNA MOLD FILLER AND DRAINER, JENNIFER A 558.9 GASTROENTERITIS NONINFECTIOUS 08/02/2013 JAYNA [...] R 465.9 UPPER RESPIRATORY INFECTION 09/11/2013 JAYNACHER ROSE, JENNIFER A 465.9 UPPER RESPIRATORY INFECTION 09/11/2013 [...] ROSE JENNIFER A 008.8 GASTROENTERITIS, VIRAL 01/31/2014 JAYNA ROSE JENNIFER A 008.8 GASTROENTERITIS, VIRAL 02/21/2014 PEBBLES JORGE APRN S 564.1 IRRITABLE BOWEL SYNDROME 02/21/2014 [place] APRNYL A 564.1 IRRITABLE BOWEL SYNDROME 02/21/2014 EZRA ACE APRNINA R 564.1 IRRITABLE BOWEL SYNDROME 02/21/2014 TAMMIE MEADOWS LCPC 564.1 IRRITABLE BOWEL SYNDROME 02/21/2014 GEREMIAS SOLORZANO APRN R 564.1 IRRITABLE BOWEL SYNDROME 02/21/2014 JAYNA MOLD FILLER AND DRAINER, JENNIFER A 564.1 IRRITABLE BOWEL SYNDROME 02/21/2014 JAYNA MOLD FILLER AND DRAINER, JENNIFER A 564.1 IRRITABLE BOWEL SYNDROME 06/19/2014 [facility] RUFINA A 381.81 EUSTACHIAN TUBE DYSFUNCTION 06/19/2014 [facility] M[facility] DRAINER[facility] RUFINA A 462 PHARYNGITIS ACUTE 06/19/2014 EZRA [...] A 381.81 EUSTACHIAN TUBE DYSFUNCTION 06/19/2014 JAYNA MOLD FILLER AND DRAINER, JENNIFER A 462 PHARYNGITIS ACUTE 06/19/2014 JAYNA MOLD FILLER AND DRAINER, JENNIFER A 381.81 EUSTACHIAN TUBE DYSFUNCTION 06/19/2014 JAYNA MOLD FILLER AND DRAINER, JENNIFER A 462 PHARYNGITIS ACUTE 07/09/2014 EZRA ACE APRNINA R 460 ACUTE NASOPHARYNGITIS (COMMON COLD) 07/09/2014 TAMMIE MEADOWS LCPC 460 ACUTE NASOPHARYNGITIS (COMMON COLD) 07/09/2014 GEREMIAS SOLORZANO APRN R 460 ACUTE NASOPHARYNGITIS (COMMON COLD) 07/09/2014 JAYNA MOLD FILLER AND DRAINER, JENNIFER A 460 ACUTE NASOPHARYNGITIS (COMMON COLD) 07/09/2014 JAYNA MOLD FILLER AND DRAINER, JENNIFER A 460 ACUTE NASOPHARYNGITIS (COMMON COLD) 07/26/2014 TAMMIE MEADOWS LCPC 296.22 MO DEPRESSIVE SINGLE MODERATE 07/26/2014 TAMMIE MEADOWS LCPC Lio 300.00 AN ANXIETY UNSPEC 07/26/2014 PATRICIA SOLORZANO APRNIA R 296.22 MO DEPRESSIVE SINGLE MODERATE 07/26/2014 PATY SOLORZANO APRNRICIA R 300.00 AN ANXIETY UNSPEC 07/26/2014 JAYNA MOLD FILLER AND DRAINER, JENNIFER A 296.22 MO DEPRESSIVE SINGLE MODERATE 07/26/2014 JAYNA MOLD FILLER AND DRAINER, JENNIFER A 300.00 AN ANXIETY UNSPEC 07/26/2014 JAYNA MOLD FILLER AND DRAINER, JENNIFER A 296.22 MO DEPRESSIVE SINGLE MODERATE 07/26/2014 JAYNA MOLD FILLER AND DRAINER, JENNIFER A 300.00 AN ANXIETY UNSPEC 11/11/2014 PATRICIA SOLORZANO APRNIA R 787.02 NAUSEA ALONE 11/11/2014 JAYNA MOLD FILLER AND DRAINER, JENNIFER A 787.02 NAUSEA ALONE 11/11/2014 JAYNA MOLD FILLER AND DRAINER, JENNIFER A 787.02 NAUSEA ALONE 11/25/2014 JAYNA MOLD FILLER AND DRAINER, JENNIFER A 786.2 COUGH 11/25/2014 JAYNA MOLD FILLER AND DRAINER, JENNIFER A 786.2 COUGH 01/30/2015 JAYNA SHAVERN, JENNIFER A V25.01 CONTRACEPTION - ORAL CONTRACEPTION 01/30/2015 JAYNA MOLD FILLER AND DRAINER, JENNIFER A V74.5 STD SCREEN 01/30/2015 JAYNA [...] 11/02/2012 J1055 DEPO-PROVERA INJ 150 MG 11/02/2012 05106 URINE TEST (IN- HOUSE) 11/02/2012 26743 URINE TEST (IN- HOUSE) 11/02/2012 J1050 DEPO PROVERA 02/16/2013 26644 URINE TEST (IN- HOUSE) 02/16/2013 51907 URINE TEST (IN- HOUSE) 08/01/2013 J1050 DEPO PROVERA 08/01/2013 47419 THERAPUTIC INJ SQ/IM 08/01/2013 79146 TEST, URINE (IN- HOUSE) 10/26/2013 J1050 DEPO PROVERA 10/26/2013 60522 THERAPUTIC INJ SQ/IM 10/26/2013 J1050 DEPO PROVERA 01/17/2014 00573 THERAPUTIC INJ SQ/IM 01/17/2014 36093 TEST, URINE (IN- HOUSE) 01/17/2014 46698 PSYCH DIAGNOSTIC EVALUATION 07/29/2014 90122 GC/CHLAM PROBE (STATE) 01/30/2015 32186 TRICHOMONAS (IN-HOUSE) 01/30/2015 06477 TEST, URINE (IN- HOUSE) 01/30/2015 Results Test [...] identification in genital specimen by aerobe culture [id number] NRG Microscopic examination by SLIME preparation - [...] probe and target amplification method Positive Negative Complete blood count (CBC) with automated white blood cell (WBC) differential - 11/10/17 12:40 Blood leukocytes automated count (number/volume) 17.8 10*3/uL 4.3-11.0 Blood erythrocytes automated count (number/volume) 5.91 10*6/uL 4.35-5.85 Venous blood hemoglobin measurement (mass/volume) 11.8 g/dL 11.5-16.0 Blood hematocrit (volume fraction) 37 % 35-52 Automated erythrocyte mean corpuscular volume 63 [foz_us] 80-99 Automated erythrocyte mean corpuscular hemoglobin (mass per erythrocyte) 20 pg 25-34 Automated erythrocyte mean corpuscular hemoglobin concentration measurement ( mass/volume) 32 g/dL 32-36 Automated erythrocyte distribution width ratio 17.5 % 10.0-14.5 Automated blood platelet count (count/volume) 560 10*3/uL 130-400 Automated blood platelet mean volume measurement 10.8 [foz_us] 7.4-10.4 Automated blood neutrophils/100 leukocytes 57 % 42-75 Automated blood lymphocytes/100 leukocytes 33 % 12-44 Blood monocytes/100 leukocytes 8 % 0-12 Automated blood eosinophils/100 leukocytes 2 % 0-10 Automated blood basophils/100 leukocytes 1 % 0-10 Blood neutrophils automated count (number/volume) 10.0 10*3 1.8-7.8 Blood lymphocytes automated count (number/volume) 5.9 10*3 1.0-4.0 Blood monocytes automated count (number/volume) 1.4 10*3 0.0-1.0 Automated eosinophil count 0.3 10*3/uL 0.0-0.3 Automated blood basophil count (count/volume) 0.2 10*3/uL 0.0-0.1 Blood manual differential performed detection - 11/10/17 12:40 Blood monocytes/100 leukocytes 3 % NRG Manual blood segmented neutrophils/100 leukocytes 55 % NRG Blood band neutrophils/100 leukocytes 0 % NRG Manual blood lymphocytes/100 leukocytes 42 % NRG Manual eosinophils/100 leukocytes in nose 0 % NRG Manual blood basophils/100 leukocytes 0 % NRG Blood ovalocytes detection by light microscopy SLIGHT NRG Blood microcytes detection by light microscopy MODERATE NRG Blood spherocytes detection by light microscopy SLIGHT NRG Comprehensive metabolic panel - 11/10/17 12:40 Serum or plasma sodium measurement (moles/volume) 148 mmol/L 135-145 Serum or plasma potassium measurement (moles/volume) 3.4 mmol/L 3.6-5.0 Serum or plasma chloride measurement (moles/volume) 108 mmol/L 98-107 Carbon dioxide 13 mmol/L 21-32 Serum or plasma anion gap determination (moles/volume) 27 mmol/L 5-14 Serum or plasma urea nitrogen measurement (mass/volume) 8 mg/dL 7-18 Serum or plasma creatinine measurement (mass/volume) 1.14 mg/dL 0.60-1.30 Serum or plasma urea nitrogen/creatinine mass ratio 7 NRG Serum or plasma creatinine measurement with calculation of estimated glomerular filtration rate 60 NRG Serum or plasma glucose measurement (mass/volume) 86 mg/dL 70-105 Serum or plasma calcium measurement (mass/volume) 10.9 mg/dL 8.5-10.1 Serum or plasma total bilirubin measurement (mass/volume) 0.9 mg/dL 0.1-1.0 Serum or plasma alkaline phosphatase measurement (enzymatic activity/volume) 59 U/L 40-136 Serum or plasma aspartate aminotransferase measurement (enzymatic activity/ volume) 18 U/L 5-34 Serum or plasma alanine aminotransferase measurement (enzymatic activity/volume ) 13 U/L 0-55 Serum or plasma protein measurement (mass/volume) 8.6 g/dL 6.4-8.2 Serum or plasma albumin measurement (mass/volume) 5.2 g/dL 3.2-4.5 Serum or plasma salicylates measurement (mass/volume) - 11/10/17 12:40 Serum or plasma salicylates measurement (mass/volume) < mg/dL 5.0-20.0 Serum or plasma acetaminophen measurement (mass/volume) - 11/10/17 12:40 Serum or plasma acetaminophen measurement (mass/volume) < ug/mL 10-30 Serum or plasma ethanol measurement (mass/volume) - 11/10/17 12:40 Serum or plasma ethanol measurement (mass/volume) < mg/dL <10 Urine drug screening test - 11/10/17 13:00 Urine phencyclidine detection by screening method NEGATIVE NEGATIVE Urine benzodiazepines detection by screening method NEGATIVE NEGATIVE Urine cocaine detection NEGATIVE NEGATIVE Urine amphetamines detection by screening method NEGATIVE NEGATIVE Urine methamphetamine detection by screening method NEGATIVE NEGATIVE Urine cannabinoids detection by screening method POSITIVE NEGATIVE Urine opiates detection by screening method NEGATIVE NEGATIVE Urine barbiturates detection NEGATIVE NEGATIVE Screening urine tricyclic antidepressants detection NEGATIVE NEGATIVE Urine methadone detection by screening method NEGATIVE NEGATIVE Urine oxycodone detection NEGATIVE NEGATIVE Urine propoxyphene detection NEGATIVE NEGATIVE Complete urinalysis with reflex to culture - 11/10/17 13:00 Urine color determination YELLOW NRG Urine clarity determination CLEAR NRG Urine pH measurement by test strip 7 5-9 Specific gravity of urine by test strip 1.010 1.016- 1.022 Urine protein assay by test strip, semi-quantitative 1+ NEGATIVE Urine glucose detection by automated test strip NEGATIVE NEGATIVE Erythrocytes detection in urine sediment by light microscopy NEGATIVE NEGATIVE Urine ketones detection by automated test [...] count by microscopy (number/high power field ) RARE NRG Bacteria detection in urine sediment by light microscopy NEGATIVE NRG Squamous epithelial cells detection in urine sediment by light microscopy 0-2 NRG Crystals detection in urine sediment by light microscopy NONE NRG Casts detection in urine sediment by light microscopy PRESENT NRG Mucus detection in urine sediment by light microscopy NEGATIVE NRG Complete urinalysis with reflex to culture NO NRG Hyaline casts detection in urine sediment by light microscopy 2-5 NRG Arterial blood gas measurement - 11/10/17 13:10 Blood pCO2 37 mm[Hg] 35-45 Blood pO2 86 mm[Hg] 79-93 Arterial blood bicarbonate measurement (moles/volume) 13 mmol/L 23-27 Arterial blood base excess by calculation -13.5 mmol/L - 2.5-2.5 Arterial blood oxygen saturation measurement 95 % 94-100 * Inhaled oxygen flow rate UNK NRG Arterial blood pH measurement with patient temperature correction 7.18 7.37-7.43 Arterial blood carbon dioxide, total measurement (moles/volume) 14.4 mmol/L 21.0-31.0 Body site LT RADIAL NRG Assessment of wrist artery patency prior to arterial puncture YES- POS NRG Setting of ventilation mode YES NRG Measurement of body temperature 98.9 NRG Encounters ACCT No. Visit Date/Time Discharge Status Pt. Type Provider Facility Loc./Unit Complaint [id number] 01/30/2015 09:00:00 01/30/2015 23:59:59 [facility] Outpatient JENNIFER DORANTES APRN [id number] 01/30/2015 09:00:00 01/30/2015 23:59:59 [facility] Outpatient JENNIFER DORANTES APRN [id number] 11/25/2014 15:03:00 11/25/2014 23:59:59 [facility] Outpatient GEREMIAS SOLORZANO APRN Gloria [id number] 11/11/2014 14:04:00 11/11/2014 23:59:59 [facility] Outpatient GEREMIAS SOLORZANO APRN Gloria [id number] 07/26/2014 10:51:00 07/26/2014 23:59:59 [facility] Outpatient TAMMIE MEADOWS LCPC Lio [id number] 07/09/2014 17:51:00 07/09/2014 23:59:59 [facility] Outpatient NYA ACE APRN Gloria [id number] 06/19/2014 10:19:00 06/19/2014 23:59:59 CLS Outpatient RUFINA HILLS APRN Roscoe [id number] 02/21/2014 17:12:00 02/21/2014 23:59:59 CLS Outpatient LUISITO SHAVERNIRVINGPEBBLES S [id number] 01/31/2014 13:32:00 01/31/2014 23:59:59 CLS Outpatient JUAN BARROS, VISH [id number] 01/17/2014 16:37:00 01/17/2014 23:59:59 CLS Outpatient IVA JOSE DO [id number] 10/26/2013 12:37:00 10/26/2013 23:59:59 CLS Outpatient IVA JOSE DO [id number] 09/11/2013 14:37:00 09/11/2013 23:59:59 CLS Outpatient JUAN BARROS, VISH [id number] 08/02/2013 13:39:00 08/02/2013 23:59:59 CLS Outpatient PATY SOLORZANO APRNGRACIELA Castro [id number] 08/01/2013 17:25:00 08/01/2013 23:59:59 CLS Outpatient JOSE DOIVA [id number] 12/28/2012 11:18:00 12/28/2012 23:59:59 CLS Outpatient [id number] 12/05/2012 13:46:00 12/05/2012 23:59:59 CLS Outpatient DAMON DOIVA [id number] 11/02/2012 16:43:00 11/02/2012 23:59:59 CLS Outpatient JOSE DOIVA [id number] 06/27/2013 12:27:00 Document Registration [id number] 02/22/2013 13:53:00 Document Registration [id number] 02/16/2013 16:25:00 Document Registration [id number] 03/25/2017 12:30:00 03/25/2017 13:53:00 DIS Emergency OSCAR BARROS, JUDY Cordero [facility] POSS VAGINAL INFECTION [id number] 02/09/2017 11:50:00 02/09/2017 12:57:00 DIS Outpatient KARRIE CORDOVA [facility] SINUS CONGESTION EARACHE SORE THROAT [id number] 08/28/2015 18:26:00 08/29/2015 12:30:00 DIS Inpatient DAVID BARROS, SONU Coronel [facility] 4TH HEPATITS,NAUSEA,VOMITING [id number] 11/10/2017 13:01:00 Document Registration [id number] 07/06/2012 23:12:00 Document Registration [id number] 11/28/2011 12:27:00 Document Registration
[2017-11-10] MEDS ORDERED: LORazepam INJECTION FOR DRIP 20 MG in NS (IVPB) 90 ML IV SCH (14:15)
--- NOTE | 2017-11-10 14:16 | Diagnostic Imaging Report ---
PROCEDURE: CT head without contrast. TECHNIQUE: Multiple contiguous axial images were obtained through the brain without the use of intravenous contrast. INDICATION: Overdose. Patient on ventilator. Comparison: None Findings: No acute intracranial hemorrhage, mass effect or edema is demonstrated. Oneal-white junction is preserved. Ventricles appear normal. No focal abnormalities demonstrated. The paranasal sinuses and mastoids are clear as visualized. Impression: No evidence of an acute intracranial abnormality. Dictated by: Dictated on workstation # [id number]
[2017-11-10] MEDS ORDERED: MIDAZOLAM 5 MG/5 ML (VERSED) VIAL IVP ONE (15:00)
--- NOTE | 2017-11-10 15:33 | Pulmonary Consultation ---
History of Present Illness History of Present Illness Date of Consultation 11/10/17 15:28 Time Seen by Provider: 15:28 Date of Admission History of Present Illness 22yo with hx of depression presented to ED after trying to kill herself and OD on diphenhydramine roughly 30-50. No known hx of Suicidal attempts. Pt started having an acute seizure while in the ED and was intubated to protect airway. Pt was give Ativan which resolved seizures. I am consulted for ICU management. Unable to obtain ROS secondary to pt being sedated on vent. Allergies and Home Medications Allergies Coded Allergies: No Known Drug Allergies (Unverified , 11/28/11) Home Medications Cefdinir 300 Mg Capsule, 300 MG PO BID, #20 Ref 0 Prescribed by: KARRIE LAWSON on 02/09/17 1215 Metronidazole 500 Mg Tablet, 500 MG PO BID, #14 Prescribed by: JUDY HAGER on 03/25/17 1345 Past Gmbxdgh-Kiwwre-Gswbup Hx Patient Social History Alcohol Use: Occasionally Uses Number of Drinks Today: Alcohol Beverage of Choice: Wine Recreational Drug Use: No Smoking Status: Current Everyday Smoker Type Used: Cigarettes Recent Foreign Travel: No Contact w/Someone Who Travel: No Recent Infectious Disease Expo: No Recent Hopitalizations: No Immunizations Up To Date Tetanus Booster (TDap): Unknown Seasonal Allergies Seasonal Allergies: Yes Surgeries History of Surgeries: No Respiratory History of Respiratory Disorde: No Cardiovascular History of Cardiac Disorders: No Neurological History of Neurological Disord: No Reproductive System : No Last Menstrual Period: Oct 23, 2017 Hx Reproductive Disorders: No Sexually Transmitted Disease: No Female Reproductive Disorders: Denies Genitourinary History of Genitourinary Disor: No Gastrointestinal History of Gastrointestinal Di: No Musculoskeletal History of Musculoskeletal Dis: No Endocrine History of Endocrine Disorders: No HEENT History of HEENT Disorders: No Cancer History of Cancer: No Psychosocial History of Psychiatric Problem: No Integumentary History of Skin or Integumenta: No Blood Transfusions History of Blood Disorders: No Family Medical History Significant Family History: No Pertinent Family Hx Review of Systems Time Seen by Provider: 15:31 Exam Exam Vital Signs Date Time Temp Pulse Resp B/P (MAP) Pulse Ox O2 Delivery O2 Flow Rate FiO2 11/10/17 14:35 125 22 100 50 11/10/17 14:27 130 16 100 50 11/10/17 12:24 97.4 135 24 139/93 (108) 99 Room Air General Appearance: No Apparent Distress, WD/WN, Other (sedated on vent.) HEENT: PERRL/EOMI, Pharynx Normal (ET tube in place) Neck: Full Range of Motion, Non Tender, Supple Respiratory: Chest Non Tender, No Accessory Muscle Use, No Respiratory Distress , No Accessory Muscle Use, Decreased Breath Sounds Cardiovascular: Regular Rate, Rhythm, No Edema, No Gallop, No JVD, No Murmur, Normal Peripheral Pulses Capillary Refill: Less Than 3 Seconds Gastrointestinal: normal bowel sounds, non tender, soft, no organomegaly, no pulsatile mass Extremity: Normal Capillary Refill, Normal Inspection, Normal Range of Motion, Non Tender, No Calf Tenderness Skin: Normal Color, Warm/Dry Lymphatic: No Adenopathy Results Lab Laboratory Tests 11/10/17 12:40 Assessment/Plan Assessment/Plan Acute respiratory failure -continue vent Depression with suicidal attempt and Benadryl OD -Pt will need psych eval Acute seizures -Ativan PRN -start KEppra -check urine preg test Metabolic lactic acidosis -repeat labs -IVF with NS Marijuanna abuse -education 255 TYSON GONZALEZ DO Nov 10, 2017 15:33
[2017-11-10] MEDS ORDERED: CATHETER FLUSH 10 ML SYR IV PRN (16:00)
[2017-11-10] MEDS ORDERED: LORazepam INJ 2 MG/ML (ATIVAN) VIAL IVP PRN (16:00)
[2017-11-10] MEDS: NS IV 1000 ML 1,000 ML IV SCH ×2 (16:20→21:12)
[2017-11-10] MEDS ORDERED: INFLUENZA TRIvalent 2017-2018 0.5 ML/45 MCG SYR IM ONE (16:45)
[2017-11-10 17:13] LABS: ABG BASE EXCESS 0.8 MMOL/L (-2.5-2.5); ABG OXYGEN SATURATION 99 % (94-100); ABG PCO2 32 MMHG (35-45); ABG PH 7.48 (7.37-7.43); ABG PO2 112 MMHG (79-93)
[2017-11-10 17:15] LABS: ALLENS TEST POSITIVE
[2017-11-10 17:16] LABS: INSPIRED O2 21%; PATIENT TEMP 98.4; VENTILATOR YES
[2017-11-10] MEDS: PROPOFOL DRIP (ICU) 100 ML IV SCH ×2 (17:29→23:04)
[2017-11-10] MEDS: inSUlin (REGULAR) HUMAN 1 UNIT/0.01 ML (CHARGE PER UNIT) SC SCH (18:00)
[2017-11-10] MEDS ORDERED: inSUlin (REGULAR) HUMAN 1 UNIT/0.01 ML (CHARGE PER UNIT) SC SCH (18:00)
--- NOTE | 2017-11-10 18:16 | History & Physicial ([facility]) ---
HPI History of Present Illness: 22 yo F admitted from ER with Benadryl overdose. Patient stated to ER doctor that she was trying to hurt herself. She call friend in after she took the pills and he told her to drive herself to the ER right away which she did. Previous suicide attempt 2 years ago and patient ended up in inpatient at then to inpatient psych for 1 week following. Prior to being intubated she told ER doctor that she ingested 30-50 tabs of sleep aide that contained Benadryl. Once in ER patient then had seizure and was intubated to protect her airway. Source: family (mother), RN/MD, old records Exam Limitations: clinical condition Date seen by provider: Nov 10, 2017 Time Seen by Provider: 15:00 Attending Physician Tomasa Navarro MD PCP No,Local Physician Consult Date of Admission Nov 10, 2017 at 13:45 Home Medications Home Medications Reviewed patient Home Medication Reconciliation Form Allergies Coded Allergies: No Known Drug Allergies (Unverified , 11/28/11) LEA-Dnivtz-Cpvgwc Hx Patient Social History Alcohol Use: Occasionally Uses Recreational Drug Use: No Smoking Status: Current Everyday Smoker Former smoker/When Quit: Jul 23, 2015 Type Used: Cigarettes Recent Foreign Travel: No Contact w/other who traveled: No Recent Hopitalizations: No Recent Infectious Disease Expo: No Physical Abuse Screen: Yes Sexual Abuse: No Immunizations Up To Date Tetanus Booster (TDap): Unknown Past Medical History Past Medical History (pt. denies history although per [facility] records) 1. Depression/ Anxiety 2. History of STD treated 06/07 chlamydia Past Surgical History 1. None Family Medical History Significant Family History: No Pertinent Family Hx Family History: Arthritis G8 SISTER Asthma G8 SISTER Cataracts G8 BROTHER Diabetes mellitus 19 MOTHER Hypertension G8 BROTHER Review of Systems ([facility]) Constitutional: no symptoms reported (Unable to get ROS, patient intubated and sedated) Reviewed Test Results Reviewed Test Results Lab Laboratory Tests Test 11/10/17 12:40 11/10/17 13:00 11/10/17 13:10 11/10/17 14:20 Range/Units White Blood Count 17.8 H 4.3-11.0 10^3/uL Red Blood Count 5.91 H 4.35-5.85 10^6/uL Hemoglobin 11.8 11.5-16.0 G/DL Hematocrit 37 35-52 % Mean Corpuscular Volume 63 L 80-99 FL Mean Corpuscular Hemoglobin 20 L 25-34 PG Mean Corpuscular Hemoglobin Concent 32 32-36 G/DL Red Cell Distribution Width 17.5 H 10.0-14.5 % Platelet Count 560 H 130-400 10^3/uL Mean Platelet Volume 10.8 H 7.4-10.4 FL Neutrophils (%) (Auto) 57 42-75 % Lymphocytes (%) (Auto) 33 12-44 % Monocytes (%) (Auto) 8 0-12 % Eosinophils (%) (Auto) 2 0-10 % Basophils (%) (Auto) 1 0-10 % Neutrophils # (Auto) 10.0 H 1.8-7.8 X 10^3 Lymphocytes # (Auto) 5.9 H 1.0-4.0 X 10^3 Monocytes # (Auto) 1.4 H 0.0-1.0 X 10^3 Eosinophils # (Auto) 0.3 0.0-0.3 10^3/uL Basophils # (Auto) 0.2 H 0.0-0.1 10^3/uL Neutrophils % (Manual) 55 % Lymphocytes % (Manual) 42 % Monocytes % (Manual) 3 % Eosinophils % (Manual) 0 % Basophils % (Manual) 0 % Band Neutrophils 0 % Microcytosis MODERATE Spherocytes SLIGHT Elliptocytes SLIGHT Sodium Level 148 H 135-145 MMOL/L Potassium Level 3.4 L 3.6-5.0 MMOL/L Chloride Level 108 H 98-107 MMOL/L Carbon Dioxide Level 13 L 21-32 MMOL/L Anion Gap 27 H 5-14 MMOL/L Blood Urea Nitrogen 8 7-18 MG/DL Creatinine 1.14 0.60-1.30 MG/DL Estimat Glomerular Filtration Rate 60 BUN/Creatinine Ratio 7 Glucose Level 86 70-105 MG/DL Calcium Level 10.9 H 8.5-10.1 MG/DL Total Bilirubin 0.9 0.1-1.0 MG/DL Aspartate Amino Transf (AST/SGOT) 18 5-34 U/L Alanine Aminotransferase (ALT/SGPT) 13 0-55 U/L Alkaline Phosphatase 59 40-136 U/L Total Protein 8.6 H 6.4-8.2 GM/DL Albumin 5.2 H 3.2-4.5 GM/DL Salicylates Level < 5.0 L 5.0-20.0 MG/DL Acetaminophen Level < 10 L 10-30 UG/ML Serum Alcohol < 10 <10 MG/DL Urine Color YELLOW Urine Clarity CLEAR Urine pH 7 5-9 Urine Specific [place] 1.010 L 1.016-1.022 Urine Protein 1+ H NEGATIVE Urine Glucose (UA) NEGATIVE NEGATIVE Urine Ketones NEGATIVE NEGATIVE Urine Nitrite NEGATIVE NEGATIVE Urine Bilirubin NEGATIVE NEGATIVE Urine Urobilinogen NORMAL NORMAL MG/DL Urine Leukocyte Esterase 1+ H NEGATIVE Urine RBC (Auto) NEGATIVE NEGATIVE Urine RBC NONE /HPF Urine WBC RARE /HPF Urine Squamous Epithelial Cells 0-2 /HPF Urine Crystals NONE /LPF Urine Bacteria NEGATIVE /HPF Urine Casts PRESENT /LPF Urine Hyaline Casts 2-5 H /LPF Urine Mucus NEGATIVE /LPF Urine Culture Indicated NO Urine Test NEGATIVE NEGATIVE Urine Opiates Screen NEGATIVE NEGATIVE Urine Oxycodone Screen NEGATIVE NEGATIVE Urine Methadone Screen NEGATIVE NEGATIVE Urine Propoxyphene Screen NEGATIVE NEGATIVE Urine Barbiturates Screen NEGATIVE NEGATIVE Ur Tricyclic Antidepressants Screen NEGATIVE NEGATIVE Urine Phencyclidine Screen NEGATIVE NEGATIVE Urine Amphetamines Screen NEGATIVE NEGATIVE Urine Methamphetamines Screen NEGATIVE NEGATIVE Urine Benzodiazepines Screen NEGATIVE NEGATIVE Urine Cocaine Screen NEGATIVE NEGATIVE Urine Cannabinoids Screen POSITIVE H NEGATIVE Blood Gas Puncture Site LT RADIAL Blood Gas Patient Temperature 98.9 Arterial Blood pH 7.18 *L 7.37-7.43 Arterial Blood Partial Pressure CO2 37 35-45 MMHG Arterial Blood Partial Pressure O2 86 79-93 MMHG Arterial Blood HCO3 13 *L 23-27 MMOL/L Arterial Blood Total CO2 14.4 L 21.0-31.0 MMOL/L Arterial Blood Oxygen Saturation 95 94-100 % Arterial Blood Base Excess -13.5 L -2.5-2.5 MMOL/L Sanjeev Test YES-POS Blood Gas Ventilator Setting YES Blood Gas Inspired Oxygen UNK Lactic Acid Level 2.54 *H 0.50-2.00 MMOL/L Total Creatine Kinase 79 29-168 U/L Test 11/10/17 16:50 11/10/17 18:02 Range/Units Blood Gas Puncture Site RIGHT RADIAL Blood Gas Patient Temperature 98.4 Arterial Blood pH 7.48 H 7.37-7.43 Arterial Blood Partial Pressure CO2 32 L 35-45 MMHG Arterial Blood Partial Pressure O2 112 H 79-93 MMHG Arterial Blood HCO3 24 23-27 MMOL/L Arterial Blood Total CO2 25.0 21.0-31.0 MMOL/L Arterial Blood Oxygen Saturation 99 94-100 % Arterial Blood Base Excess 0.8 -2.5-2.5 MMOL/L Sanjeev Test POSITIVE Blood Gas Ventilator Setting YES Blood Gas Inspired Oxygen 21% Lactic Acid Level 0.97 0.50-2.00 MMOL/L Glucometer 70 70-110 MG/DL Radiology Date of Exam: 11/10/17 CT HEAD WO PROCEDURE: CT head without contrast. TECHNIQUE: Multiple contiguous axial images were obtained through the brain without the use of intravenous contrast. INDICATION: Overdose. Patient on ventilator. Comparison: None Findings: No acute intracranial hemorrhage, mass effect or edema is demonstrated. Oneal-white junction is preserved. Ventricles appear normal. No focal abnormalities demonstrated. The paranasal sinuses and mastoids are clear as visualized. Impression: No evidence of an acute intracranial abnormality. Date of Exam: 11/10/17 CHEST 1 VIEW, AP/PA ONLY INDICATION: Possible overdose. Intubation. COMPARISON: None. FINDINGS: Single frontal view of the chest is obtained. There is an endotracheal tube present which appears to be in good position with the tip approximately 4.5 cm above the ralph. Nasogastric tube is seen in the stomach. Heart size is normal. The pulmonary vessels appear unremarkable. There is no pneumothorax, mediastinal widening or pleural fluid. The lungs are clear. IMPRESSION: Endotracheal tube appears to be in good position. No acute cardiopulmonary abnormality is demonstrated. Physical Exam-([facility]) Physical Exam Vital Signs VS - Last 72 Hours, by Label 11/10/17 11/10/17 11/10/17 11/10/17 12:24 14:27 14:35 14:51 Temp 97.4 Pulse 135 130 125 106 Resp 24 16 22 B/P (MAP) 139/93 (108) Pulse Ox 99 100 100 O2 Delivery Room Air FiO2 50 50 11/10/17 11/10/17 11/10/17 11/10/17 15:00 15:55 16:00 16:55 Pulse 106 120 98 Resp 19 16 27 B/P (MAP) 128/89 (102) 123/87 (99) Pulse Ox 100 97 100 O2 Delivery Mechanical Ventilator Mechanical Ventilator Mechanical Ventilator O2 Flow Rate 21.00 21.00 FiO2 21 21 11/10/17 11/10/17 17:00 17:29 Pulse 91 90 Resp 15 B/P (MAP) 118/84 (95) 112/75 Pulse Ox 100 O2 Delivery Mechanical Ventilator Mechanical Ventilator O2 Flow Rate 21.00 21.00 Capillary Refill : Less Than 3 Seconds General Appearance: other (Intubated and sedated) HEENT: PERRL/EOMI Neck: non-tender Respiratory: chest non-tender, lungs clear Cardiovascular: normal peripheral pulses, regular rate, rhythm, no edema, no murmur Gastrointestinal: normal bowel sounds, soft, no organomegaly Extremities: no pedal edema, normal capillary refill Neurologic/Psychiatric: other (sedated) Skin: normal color, warm/dry Lymphatic: no adenopathy Clinical Quality Measures DVT/VTE Risk/Contraindication: Risk Factor Score Per Nursin RFS Level Per Nursing on Admit: 3=High Copy Copies To 1: TOMASA NAVARRO MD Assessment/Plan Assessment/Plan Plan 22 yo F admitted for suicide attempt with intentional ingestion Suicide Attempt with intentional ingestion of Benadryl - Monitor QRS - Currently has activated charcoal Seizure - Patient was started on keppra, 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
[2017-11-10] MEDS ORDERED: fentaNYL INJECTION 100 MCG/2 ML AMP ONE (20:14)
[2017-11-10] MEDS ORDERED: fentaNYL INJECTION 100 MCG/2 ML AMP IV NR (20:15)
[2017-11-10] MEDS ORDERED: fentaNYL INJECTION 100 MCG/2 ML AMP IV PRN (20:30)
[2017-11-10] MEDS ORDERED: fentaNYL INJECTION 100 MCG/2 ML AMP IVP PRN (20:30)
[2017-11-10] MEDS: LEVETIRACETAM INJECTION 1,000 MG in NS (IVPB) 100 ML IV SCH (21:21)
[2017-11-11] VITALS (26 sets, daily range): BP systolic 101–122; BP diastolic 58–97
[2017-11-11] MEDS: NS IV 1000 ML 1,000 ML IV SCH ×6 (01:02→21:49)
[2017-11-11] MEDS: inSUlin (REGULAR) HUMAN 1 UNIT/0.01 ML (CHARGE PER UNIT) SC SCH ×4 (01:06→18:00)
[2017-11-11 04:24] LABS: BASOPHILS # (AUTO) 0.1 10^3/uL (0.0-0.1); BASOPHILS % (AUTO) 1 % (0-10); EOSINOPHILS # (AUTO) 0.1 10^3/uL (0.0-0.3); EOSINOPHILS % (AUTO) 1 % (0-10); HEMATOCRIT 27 % (35-52); HEMOGLOBIN 8.6 G/DL (11.5-16.0); LYMPHOCYTES # (AUTO) 2.6 X 10^3 (1.0-4.0); LYMPHOCYTES % (AUTO) 14 % (12-44); MEAN CORPUSCULAR HEMOGLOBIN 20 PG (25-34); MEAN CORPUSCULAR HGB CONC 33 G/DL (32-36); MEAN CORPUSCULAR VOLUME 62 FL (80-99); MEAN PLATELET VOLUME 10.1 FL (7.4-10.4); MONOCYTES # (AUTO) 0.8 X 10^3 (0.0-1.0); MONOCYTES % (AUTO) 4 % (0-12); NEUTROPHILS # (AUTO) 15.5 X 10^3 (1.8-7.8); NEUTROPHILS % (AUTO) 81 % (42-75); PLATELET COUNT 355 10^3/uL (130-400); RED BLOOD COUNT 4.25 10^6/uL (4.35-5.85); RED CELL DISTRIBUTION WIDTH 15.7 % (10.0-14.5); WHITE BLOOD COUNT 19.1 10^3/uL (4.3-11.0)
[2017-11-11 04:28] LABS: ABG BASE EXCESS -3.5 MMOL/L (-2.5-2.5); ABG OXYGEN SATURATION 96 % (94-100); ABG PCO2 38 MMHG (35-45); ABG PH 7.36 (7.37-7.43); ABG PO2 77 MMHG (79-93); ABG TCO2 22.2 MMOL/L (21.0-31.0); ALLENS TEST YES-POS; INSPIRED O2 21%; PATIENT TEMP 98.8; VENTILATOR YES
[2017-11-11 04:50] LABS: BUN/CREATININE RATIO 6; CALCIUM 8.1 MG/DL (8.5-10.1); CARBON DIOXIDE 21 MMOL/L (21-32); CHLORIDE 112 MMOL/L (98-107); CREATININE SERUM 0.77 MG/DL (0.60-1.30); GFR ESTIMATED > 60; GLUCOSE 86 MG/DL (70-105); MAGNESIUM 1.9 MG/DL (1.8-2.4); PHOSPHORUS 3.6 MG/DL (2.3-4.7); POTASSIUM 4.3 MMOL/L (3.6-5.0); SODIUM 141 MMOL/L (135-145)
--- NOTE | 2017-11-11 05:01 | Pulmonary Progress Note ---
Subjective Time Seen by Provider: 05:13 Subjective/Events-last exam PT is doing well no complications noted. Exam Exam Vital Signs Date Time Temp Pulse Resp B/P (MAP) Pulse Ox O2 Delivery O2 Flow Rate FiO2 11/11/17 04:31 76 16 98 21 11/11/17 04:00 99 Mechanical Ventilator 21.00 11/11/17 04:00 86 15 117/97 (104) 98 Mechanical Ventilator 21.00 11/11/17 03:00 76 18 113/85 (94) 100 Mechanical Ventilator 21.00 11/11/17 02:00 77 17 110/81 (91) 100 Mechanical Ventilator 21.00 11/11/17 01:00 77 11/11/17 01:00 77 13 109/78 (88) 100 Mechanical Ventilator 21.00 11/11/17 00:46 78 16 100 21 11/11/17 00:00 79 16 108/77 (87) 99 Mechanical Ventilator 21.00 11/11/17 00:00 98 Mechanical Ventilator 21.00 11/10/17 23:04 98.4 93 12 105/69 100 Mechanical Ventilator 21.00 18 23:00 84 16 106/75 (85) 100 Mechanical Ventilator 21.00 11/10/17 22:00 86 16 113/79 (90) 100 Mechanical Ventilator 21.00 11/10/17 21:00 93 12 105/69 (81) 100 Mechanical Ventilator 21.00 1818 20:37 93 16 100 21 1818 20:00 100 Mechanical Ventilator 21.00 18 19:42 98.4 102 18 124/84 (97) 100 Mechanical Ventilator 21.00 18 19:33 104 19 100 21 1818 19:00 108 1/18/18 18:00 98 17 129/93 (105) 100 Mechanical Ventilator 21.00 1818 17:29 90 112/75 Mechanical Ventilator 21.00 1818 17:00 91 15 118/84 (95) 100 Mechanical Ventilator 21.00 1818 16:55 Mechanical Ventilator 21 1818 16:00 98 27 123/87 (99) 100 Mechanical Ventilator 21.00 1818 15:55 120 16 97 21 18 15:00 106 19 128/89 (102) 100 Mechanical Ventilator 21.00 11/10/17 14:51 106 11/10/17 14:44 98.4 107 16 100 Ambu Bag 11/10/17 14:35 125 22 100 50 11/10/17 14:27 130 16 100 50 11/10/17 12:58 98.4 102 18 124/84 100 Mechanical Ventilator 21.00 11/10/17 12:24 97.4 135 24 139/93 (108) 99 Room Air I & O 11/11/17 07:00 Intake Total 0 ml Output Total 875 ml Balance -875 ml General Appearance: No Apparent Distress, WD/WN, Other (sedated on vent.) HEENT: PERRL/EOMI, Pharynx Normal (ET tube in place) Neck: Full Range of Motion, Non Tender, Supple Respiratory: Chest Non Tender, No Accessory Muscle Use, No Respiratory Distress , No Accessory Muscle Use, Decreased Breath Sounds Cardiovascular: Regular Rate, Rhythm, No Edema, No Gallop, No JVD, No Murmur, Normal Peripheral Pulses Capillary Refill: Less Than 3 Seconds Gastrointestinal: normal bowel sounds, non tender, soft Extremity: Normal Capillary Refill, Normal Inspection, Normal Range of Motion, Non Tender, No Calf Tenderness Skin: Normal Color, Warm/Dry Lymphatic: No Adenopathy Results Lab Laboratory Tests 11/10/17 12:40 11/11/17 04:00 Assessment/Plan Assessment/Plan Acute respiratory failure -wean vent - once pt is awake we will extubate Depression with suicidal attempt and Benadryl OD -Pt will need psych eval Acute seizures -Ativan PRN -Continue Keppra -check urine preg test Metabolic lactic acidosis -repeat labs -IVF with NS Shawn abuse -education 233 Clinical Quality Measures DVT/VTE Risk/Contraindication: Risk Factor Score Per Nursin RFS Level Per Nursing on Admit: 3=High TYSON GONZALEZ DO Nov 11, 2017 05:01
[2017-11-11 05:07] LABS: INR 1.3 (0.8-1.4); PROTHROMBIN TIME PATIENT 16.4 SEC (12.2-14.7)
[2017-11-11 05:17] LABS: ALANINE AMINOTRANSFERASE 9 U/L (0-55); ALBUMIN 3.5 GM/DL (3.2-4.5); ALKALINE PHOSPHATASE 42 U/L (40-136); BILIRUBIN,TOTAL 0.5 MG/DL (0.1-1.0); BUN/CREATININE RATIO 8; CALCIUM 8.2 MG/DL (8.5-10.1); CARBON DIOXIDE 21 MMOL/L (21-32); CHLORIDE 112 MMOL/L (98-107); CREATININE SERUM 0.77 MG/DL (0.60-1.30); GFR ESTIMATED > 60; GLUCOSE 83 MG/DL (70-105); POTASSIUM 4.5 MMOL/L (3.6-5.0); SODIUM 142 MMOL/L (135-145); TOTAL PROTEIN 5.5 GM/DL (6.4-8.2)
[2017-11-11] MEDS: POTASSIUM CL 10MEQ/50ML IVPB 50 ML IV SCH (06:43)
[2017-11-11] MEDS: MAGNESIUM 1 GM/100 ML IVPB 100 ML IV SCH (06:43)
[2017-11-11] MEDS: KCL 20 MEQ TAB (K-DUR) PO SCH (06:43)
[2017-11-11] MEDS ORDERED: ONDANSETRON 4 MG/2 ML (SDV) Z0FRAN IVP PRN (06:45)
[2017-11-11 07:18] LABS: BASOPHILS # (AUTO) 0.1 10^3/uL (0.0-0.1); BASOPHILS % (AUTO) 1 % (0-10); EOSINOPHILS # (AUTO) 0.1 10^3/uL (0.0-0.3); EOSINOPHILS % (AUTO) 1 % (0-10); HEMATOCRIT 28 % (35-52); HEMOGLOBIN 9.1 G/DL (11.5-16.0); LYMPHOCYTES # (AUTO) 2.2 X 10^3 (1.0-4.0); LYMPHOCYTES % (AUTO) 13 % (12-44); MEAN CORPUSCULAR HEMOGLOBIN 20 PG (25-34); MEAN CORPUSCULAR HGB CONC 33 G/DL (32-36); MEAN CORPUSCULAR VOLUME 62 FL (80-99); MONOCYTES # (AUTO) 0.9 X 10^3 (0.0-1.0); MONOCYTES % (AUTO) 5 % (0-12); NEUTROPHILS % (AUTO) 81 % (42-75); PLATELET COUNT 359 10^3/uL (130-400); RED BLOOD COUNT 4.51 10^6/uL (4.35-5.85); RED CELL DISTRIBUTION WIDTH 15.9 % (10.0-14.5); WHITE BLOOD COUNT 17.3 10^3/uL (4.3-11.0)
[2017-11-11 07:47] LABS: AMYLASE 75 U/L (25-125); BUN/CREATININE RATIO 8; CALCIUM 8.1 MG/DL (8.5-10.1); CARBON DIOXIDE 21 MMOL/L (21-32); CHLORIDE 111 MMOL/L (98-107); CREATININE SERUM 0.77 MG/DL (0.60-1.30); GFR ESTIMATED > 60; GLUCOSE 104 MG/DL (70-105); LIPASE 9 U/L (8-78); POTASSIUM 3.4 MMOL/L (3.6-5.0); SODIUM 141 MMOL/L (135-145)
--- NOTE | 2017-11-11 08:45 | Diagnostic Imaging Report ---
INDICATION: Overdose. Mechanical ventilation. Dyspnea. TECHNIQUE: Single view chest at 4:22 AM. CORRELATION STUDY: 11/10/2017. FINDINGS: Endotracheal and nasogastric tubes are present. The heart size and mediastinum are unremarkable. Minimal perihilar areas of atelectasis are noted, particularly on the right. The lungs are otherwise relatively clear. IMPRESSION: 1. Stable support lines and tubes. 2. Bilateral perihilar atelectasis or infiltrate, right greater than left. Dictated by: Dictated on workstation # [id number]
[2017-11-11] MEDS: LEVETIRACETAM INJECTION 1,000 MG in NS (IVPB) 100 ML IV SCH (09:39)
[2017-11-11] MEDS: PANTOPRAZOLE 40 MG/10 ML (PROTONIX) VIAL IV SCH (09:40)
[2017-11-11 10:28] LABS: HEMOGLOBIN 8.7 G/DL (11.5-16.0)
--- NOTE | 2017-11-11 10:43 | Physical Therapy Evaluation ---
PT Evaluation-General Medical Diagnosis Admission Date Nov 10, 2017 at 13:45 Medical Diagnosis: Diphenhydramine OD/seizure Onset Date: Nov 10, 2017 Therapy Diagnosis Therapy Diagnosis: Generalized debility/weakness Height/Weight Height (Feet): 5 Height (Inches): 7.00 Weight (Pounds): 138 Weight (Ounces): 0.0 Precautions Precautions/Isolations: Fall Prevention, Standard Precautions Weight Bear Status Right Lower Extremity: Right Full Weight Bearing Left Lower Extremity: Left Full Weight Bearing Referral Physician: Jazlyn Reason for Referral: Evaluation/Treatment Medical History Pertinent Medical History: Smoking Current History s/p OD suicide attempt Reviewed History: Yes Prior/Core FIM Prior Level of Function Functional Gilliam Measure 0=Not Assessed/NA 4=Minimal Assistance 1=Total Assistance 5=Supervision or Setup 2=Maximal Assistance 6=Modified Gilliam 3=Moderate Assistance 7=Complete [place] Bed Mobility: 7 Transfers (B,C,W/C) (FIM): 7 Gait: 7 Locomotion: 7 PT Evaluation-Current Subjective Patient is lethargic. Agrees to PT. Pain Numeric Pain Scale: 0-No Pain Location: No Pain Reported Objective Patient Orientation: Normal For Age Problem Solving: Fair Attachments: Oxygen, Miramontes Catheter, IV ROM/Strength ROM Lower Extremities bilateral LE WNL Strength Lower Extremities bilateral LE 3/5 grossly Integumentary/Posture Integumentary refer to nursing notes Bowel Incontinence: No Bladder Incontinence: Miramontes Cath Posture WFL Neuromuscular (Tone, Coordination, Reflexes) diminished coordination due to medication Sensory Vision: Functional Hearing: Functional Sensation Right Lower Extremit: Intact Sensation Left Lower Extremity: Intact Transfers Functional Gilliam Measure 0=Not Assessed/NA 4=Minimal Assistance 1=Total Assistance 5=Supervision or Setup 2=Maximal Assistance 6=Modified Gilliam 3=Moderate Assistance 7=Complete [place]am Transfers (B, C, W/C) (FIM): 5 Scootin Rollin Supine to/from Sit: 5 during bed mobility patient vomited and returned to bed. Gait Mode of Locomotion: Walk Anticipated Mode of Locomotion: Walk Balance Sitting Static: Fair Sitting Dynamic: Fair Assessment/Needs 22 y.o. female, will be seen x 2 sessions to assess functional mobility to ensure safe return to home. Rehab Potential: Good PT Short Term Goals Short Term Goals Time Frame: Nov 12, 2017 Transfers (B,C,W/C) (FIM): 7 Gait (FIM): 7 Distance (FIM): 3=150 ft Gait Level of Assist: 7 Gait Assistive Device: None PT Plan Problem List Problem List: Activity Tolerance, Functional Strength Treatment/Plan Treatment Plan: Continue Plan of Care Treatment Plan: Education, Functional Activity Kailey, Functional Strength, Gait , Safety, Therapeutic Exercise, Transfers Treatment Duration: Nov 12, 2017 Frequency: 2 times per week Estimated Hrs Per Day: .25 hour per day Patient and/or Family Agrees t: Yes Time/GCodes Time In: 810 Time Out: 820 Total Billed Treatment Time: 10 Total Billed Treatment 1 visit EVLowC 10 min PB RIVAS PT Nov 11, 2017 10:43
--- NOTE | 2017-11-11 11:19 | Progress Note (SOAP) ---
Subjective Subjective/Events-last exam Extubated this AM. Still very sleepy and it is hard for her to talk right now. Denies any pain. States that her throat is sore Review of Systems Date Seen by Provider: Nov 11, 2017 Time Seen by Provider: 09:25 Pulmonary: Dyspnea, Cough Cardiovascular: No: Chest Pain, Palpitations Gastrointestinal: Nausea, No: Vomiting Objective Exam Last Set of Vital Signs Vital Signs Date Time Temp Pulse Resp B/P (MAP) Pulse Ox O2 Delivery O2 Flow Rate FiO2 11/11/17 10:00 87 13 101/58 (72) 100 Room Air 11/11/17 07:00 21.00 11/11/17 04:31 21 11/10/17 23:04 98.4 Capillary Refill : Less Than 3 Seconds I&O Intake and Output 11/11/17 00:00 Intake Total 0 ml Output Total 400 ml Balance -400 ml Intake Oral 0 ml Output Urine Total 300 ml Gastric Drainage Total 100 ml Daily Weight Change No General: Alert, No Acute Distress Lungs: Clear to Auscultation Heart: Regular Rate, No Murmurs Abdomen: Soft, No Tenderness Extremities: No Edema, No Tenderness/Swelling Psych/Mental Status: Other (depressed affect) Results/Procedures Lab Laboratory Tests 11/10/17 12:40: White Blood Count 17.8H, Red Blood Count 5.91H, Hemoglobin 11.8, Hematocrit 37, Mean Corpuscular Volume 63L, Mean Corpuscular Hemoglobin 20L, Mean Corpuscular Hemoglobin Concent 32, Red Cell Distribution Width 17.5H, Platelet Count 560H, Mean Platelet Volume 10.8H, Neutrophils (%) (Auto) 57, Lymphocytes (%) (Auto) 33 , Monocytes (%) (Auto) 8, Eosinophils (%) (Auto) 2, Basophils (%) (Auto) 1, Neutrophils # (Auto) 10.0H, Lymphocytes # (Auto) 5.9H, Monocytes # (Auto) 1.4H, Eosinophils # (Auto) 0.3, Basophils # (Auto) 0.2H, Neutrophils % (Manual) 55, Lymphocytes % (Manual) 42, Monocytes % (Manual) 3, Eosinophils % (Manual) 0, Basophils % (Manual) 0, Band Neutrophils 0, Microcytosis MODERATE, Spherocytes SLIGHT, Elliptocytes SLIGHT, Sodium Level 148H, Potassium Level 3.4L, Chloride Level 108H, Carbon Dioxide Level 13L, Anion Gap 27H, Blood Urea Nitrogen 8, Creatinine 1.14, Estimat Glomerular Filtration Rate 60, BUN/Creatinine Ratio 7, Glucose Level 86, Calcium Level 10.9H, Total Bilirubin 0.9, Aspartate Amino Transf (AST/SGOT) 18, Alanine Aminotransferase (ALT/SGPT) 13, Alkaline Phosphatase 59, Total Protein 8.6H, Albumin 5.2H, Salicylates Level < 5.0L, Acetaminophen Level < 10L, Serum Alcohol < 10 11/10/17 13:00: Urine Color YELLOW, Urine Clarity CLEAR, Urine pH 7, Urine Specific [place] 1.010L, Urine Protein 1+H, Urine Glucose (UA) NEGATIVE, Urine Ketones NEGATIVE, Urine Nitrite NEGATIVE, Urine Bilirubin NEGATIVE, Urine Urobilinogen NORMAL, Urine Leukocyte Esterase 1+H, Urine RBC (Auto) NEGATIVE, Urine RBC NONE, Urine WBC RARE, Urine Squamous Epithelial Cells 0-2, Urine Crystals NONE, Urine Bacteria NEGATIVE, Urine Casts PRESENT, Urine Hyaline Casts 2-5H, Urine Mucus NEGATIVE, Urine Culture Indicated NO, Urine Test NEGATIVE, Urine Opiates Screen NEGATIVE, Urine Oxycodone Screen NEGATIVE, Urine Methadone Screen NEGATIVE, Urine Propoxyphene Screen NEGATIVE, Urine Barbiturates Screen NEGATIVE, Ur Tricyclic Antidepressants Screen NEGATIVE, Urine Phencyclidine Screen NEGATIVE, Urine Amphetamines Screen NEGATIVE, Urine Methamphetamines Screen NEGATIVE, Urine Benzodiazepines Screen NEGATIVE, Urine Cocaine Screen NEGATIVE, Urine Cannabinoids Screen POSITIVEH 11/10/17 13:10: Blood Gas Puncture Site LT RADIAL, Blood Gas Patient Temperature 98.9, Arterial Blood pH 7.18*L, Arterial Blood Partial Pressure CO2 37, Arterial Blood Partial Pressure O2 86, Arterial Blood HCO3 13*L, Arterial Blood Total CO2 14.4L, Arterial Blood Oxygen Saturation 95, Arterial Blood Base Excess -13.5L, Sanjeev Test YES-POS, Blood Gas Ventilator Setting YES, Blood Gas Inspired Oxygen UNK 11/10/17 14:20: Lactic Acid Level 2.54*H, Total Creatine Kinase 79 11/10/17 16:50: Blood Gas Puncture Site RIGHT RADIAL, Blood Gas Patient Temperature 98.4, Arterial Blood pH 7.48H, Arterial Blood Partial Pressure CO2 32L, Arterial Blood Partial Pressure O2 112H, Arterial Blood HCO3 24, Arterial Blood Total CO2 25.0, Arterial Blood Oxygen Saturation 99, Arterial Blood Base Excess 0.8, Sanjeev Test POSITIVE, Blood Gas Ventilator Setting YES, Blood Gas Inspired Oxygen 21%, Lactic Acid Level 0.97 11/10/17 18:02: Glucometer 70 11/11/17 01:06: Glucometer 85 11/11/17 04:00: White Blood Count 19.1H, Red Blood Count 4.25L, Hemoglobin 8.6#L, Hematocrit 27L , Mean Corpuscular Volume 62L, Mean Corpuscular Hemoglobin 20L, Mean Corpuscular Hemoglobin Concent 33, Red Cell Distribution Width 15.7H, Platelet Count 355, Mean Platelet Volume 10.1, Neutrophils (%) (Auto) 81H, Lymphocytes (% ) (Auto) 14, Monocytes (%) (Auto) 4, Eosinophils (%) (Auto) 1, Basophils (%) ( Auto) 1, Neutrophils # (Auto) 15.5H, Lymphocytes # (Auto) 2.6, Monocytes # (Auto ) 0.8, Eosinophils # (Auto) 0.1, Basophils # (Auto) 0.1, Prothrombin Time 16.4H , INR Comment 1.3, Activated Partial Thromboplast Time 33, Sodium Level 142, Potassium Level 4.5, Chloride Level 112H, Carbon Dioxide Level 21, Anion Gap 9, Blood Urea Nitrogen 6L, Creatinine 0.77, Estimat Glomerular Filtration Rate > 60 , BUN/Creatinine Ratio 8, Glucose Level 83, Calcium Level 8.2L, Phosphorus Level 3.6, Magnesium Level 1.9, Total Bilirubin 0.5, Aspartate Amino Transf (AST /SGOT) 14, Alanine Aminotransferase (ALT/SGPT) 9, Alkaline Phosphatase 42, Total Protein 5.5L, Albumin 3.5 11/11/17 04:15: Blood Gas Puncture Site L RAD, Blood Gas Patient Temperature 98.8, Arterial Blood pH 7.36L, Arterial Blood Partial Pressure CO2 38, Arterial Blood Partial Pressure O2 77L, Arterial Blood HCO3 21L, Arterial Blood Total CO2 22.2, Arterial Blood Oxygen Saturation 96, Arterial Blood Base Excess -3.5L, Sanjeev Test YES-POS, Blood Gas Ventilator Setting YES, Blood Gas Inspired Oxygen 21% 11/11/17 07:10: White Blood Count 17.3H, Red Blood Count 4.51, Hemoglobin 9.1L, Hematocrit 28L, Mean Corpuscular Volume 62L, Mean Corpuscular Hemoglobin 20L, Mean Corpuscular Hemoglobin Concent 33, Red Cell Distribution Width 15.9H, Platelet Count 359, Mean Platelet Volume 10.0, Neutrophils (%) (Auto) 81H, Lymphocytes (%) (Auto) 13 , Monocytes (%) (Auto) 5, Eosinophils (%) (Auto) 1, Basophils (%) (Auto) 1, Neutrophils # (Auto) 14.0H, Lymphocytes # (Auto) 2.2, Monocytes # (Auto) 0.9, Eosinophils # (Auto) 0.1, Basophils # (Auto) 0.1, Sodium Level 141, Potassium Level 3.4L, Chloride Level 111H, Carbon Dioxide Level 21, Anion Gap 9, Blood Urea Nitrogen 6L, Creatinine 0.77, Estimat Glomerular Filtration Rate > 60, BUN/ Creatinine Ratio 8, Glucose Level 104, Calcium Level 8.1L, Amylase Level 75, Lipase 9 11/11/17 09:57: Hemoglobin 8.7L, Hematocrit 27L Radiology Date of Exam: 11/10/17 CT HEAD WO PROCEDURE: CT head without contrast. TECHNIQUE: Multiple contiguous axial images were obtained through the brain without the use of intravenous contrast. INDICATION: Overdose. Patient on ventilator. Comparison: None Findings: No acute intracranial hemorrhage, mass effect or edema is demonstrated. Oneal-white junction is preserved. Ventricles appear normal. No focal abnormalities demonstrated. The paranasal sinuses and mastoids are clear as visualized. Impression: No evidence of an acute intracranial abnormality. Date of Exam: 11/10/17 CHEST 1 VIEW, AP/PA ONLY INDICATION: Possible overdose. Intubation. COMPARISON: None. FINDINGS: Single frontal view of the chest is obtained. There is an endotracheal tube present which appears to be in good position with the tip approximately 4.5 cm above the ralph. Nasogastric tube is seen in the stomach. Heart size is normal. The pulmonary vessels appear unremarkable. There is no pneumothorax, mediastinal widening or pleural fluid. The lungs are clear. IMPRESSION: Endotracheal tube appears to be in good position. No acute cardiopulmonary abnormality is demonstrated. Assessment/Plan Assessment/Plan Plan 22 yo F admitted for suicide attempt with intentional ingestion Suicide Attempt with intentional ingestion of Benadryl - Monitor QRS - Possible inpatient Psych transfer Seizure - Consider stopping Keppra and continue to monitor - Patient does not have underlying Sz d/o Acute respiratory failure: Resolved, Extubated this AM Depression FEN: CLD will advance as tolerated DVT: Lovenox Dispo: Continue to monitor in ICU, possible transfer to floor later today Clinical Quality Measures DVT/VTE Risk/Contraindication: Risk Factor Score Per Nursin RFS Level Per Nursing on Admit: 3=High TOMASA BROWN MD Nov 11, 2017 11:19
--- NOTE | 2017-11-11 14:41 | Occupational Therapy Eval ---
OT Evaluation-General/PLF Medical Diagnosis Admission Date Nov 10, 2017 at 13:45 Medical Diagnosis: Diphenhydramine OD/seizure Onset Date: Nov 10, 2017 Therapy Diagnosis Therapy Diagnosis: decr self care, decr funct mobility, weakness, decr activity gricel Height/Weight Height (Feet): 5 Height (Inches): 7.00 Weight (Pounds): 138 Weight (Ounces): 0.0 Precautions Precautions/Isolations: Seizure, Fall Prevention, Standard Precautions, Suicide Safety Interventions: None Referral Physician: Jazlyn Referral Reason: Evaluation/Treatment Medical History Pertinent Medical History: Smoking Additional Medical History Depression, smoker, marijuana abuse Current History Overdose, seizure. Was intubated for respiratory failure but off vent now. Reviewed History: Yes ADL-Prior Level of Function ADL PLOF Comments Pt reported that she was able to manage her basic self care needs prior to event. She drives and works at the [employer]. OT Current Status Subjective Pt seen in room in ICU, in bed, agreeable to OT. Pt reported that she wasn't in any pain. Appearance Alert, cooperative, a little drowsy Mental Status/Objective Attachments: Central Line, IV, Oxygen, Telemetry Current Hearing Aids: No Dentures/Partials: No Hand Dominance: Right Upper Extremity ROM Grossly WFL bilat Upper Extremity Strength Grossly 4/5 bilat ADL-Treatment ADL-Current Pt reported that she hasn't eaten because of nausea but was able to get a drink from mug. She sat EOB earlier today with PT but vomited. OT attempted to help get her up to EOB and she agreed to do it but just covered up more with blankets instead. Pt encouraged to do as much as she can for herself. Functional [place] Measure 0=Not Assessed/NA 4=Minimal Assistance 1=Total Assistance 5=Supervision or Setup 2=Maximal Assistance 6=Modified [place] 3=Moderate Assistance 7=Complete IndependenceIRFPAI Quality Coding Scale 6 Independent with activity with or without an assistive device 5 Patient requires set up or clean up by helper. Patient completes activity by themselves 4 Supervision or touching assist (CGA). [place] provide cues , steadying assist 3 The helper provides less than half the effort to complete the activity 2 The helper provides more than half the effort to complete the activity 1 Dependent. The helper does all the effort to complete an activity 7 Patient refused to complete or attempt activity 9 The patient did not perform the activity before the current illness or injury 88 Not attempted due to Medical conditions or safety concerns Education OT Patient Education: Purpose of tx/functional activities, Rehab process Teaching Recipient: Patient, Family Response to Teaching: Verbalize Understanding OT Intermediate Goals Jewel Supervisor Goals Time Frame: Nov 18, 2017 Eating (FIM): 6 Grooming(FIM): 6 Bathing(FIM): 6 Upper Body Dressing(FIM): 6 Lower Body Dressing(FIM): 6 Toileting(FIM): 6 Toilet/Commode Transfer(FIM): 6 Shower Transfer(FIM): 6 Additional Goals: 2-Verbalize Understanding, 3-ImproveStrength/[place] 1=Demonstrate adherence to instructed precautions during ADL tasks. 2=Patient will verbalize/demonstrate understanding of assistive devices/ modifications for ADL. 3=Patient will improve strength/tolerance for activity to enable patient to perform ADL's. OT Education/Plan Problem List/Assessment Assessment: Decreased Activ Tolerance, Decreased UE Strength, Dependent Transfers, Impaired Self-Care Skills Pt would benefit from skilled OT to increase her independence in basic self care and to decrease caregiver burden Discharge Recommendations Plan/Recommendations: Continue POC Treatment Plan/Plan of Care Treatment,Training & Education: Yes Patient would benefit from OT for education, treatment and training to promote independence in ADL's, mobility, safety and/or upper extremity function for ADL' s. Plan of Care: ADL Retraining, Functional Mobility, UE Funct Exercise/Act Treatment Duration: Nov 18, 2017 Frequency: 5 times per week Estimated Hrs Per Day: .5 hour per day (.25 to .5) Agreement: Yes Rehab Potential: Good Time/GCodes Start Time: 13:22 Stop Time: 13:32 Total Time Billed (hr/min): 10 Billed Treatment Time visit, 10 minutes evaluation moderate intensity GINO WEAVER OT Nov 11, 2017 14:41
[2017-11-11] MEDS: LORazepam 0.5 MG (ATIVAN) TABLET PO PRN ×2 (18:59→22:53)
[2017-11-12] VITALS (16 sets, daily range): BP systolic 90–116; BP diastolic 54–72
[2017-11-12] MEDS: NS IV 1000 ML 1,000 ML IV SCH ×3 (01:56→22:49)
[2017-11-12 04:07] LABS: BASOPHILS # (AUTO) 0.1 10^3/uL (0.0-0.1); BASOPHILS % (AUTO) 1 % (0-10); EOSINOPHILS # (AUTO) 0.1 10^3/uL (0.0-0.3); EOSINOPHILS % (AUTO) 1 % (0-10); HEMATOCRIT 24 % (35-52); HEMOGLOBIN 7.7 G/DL (11.5-16.0); LYMPHOCYTES # (AUTO) 2.5 X 10^3 (1.0-4.0); LYMPHOCYTES % (AUTO) 18 % (12-44); MEAN CORPUSCULAR HEMOGLOBIN 20 PG (25-34); MEAN CORPUSCULAR HGB CONC 33 G/DL (32-36); MEAN CORPUSCULAR VOLUME 62 FL (80-99); MEAN PLATELET VOLUME 10.9 FL (7.4-10.4); MONOCYTES # (AUTO) 0.9 X 10^3 (0.0-1.0); MONOCYTES % (AUTO) 7 % (0-12); NEUTROPHILS # (AUTO) 10.7 X 10^3 (1.8-7.8); NEUTROPHILS % (AUTO) 75 % (42-75); PLATELET COUNT 298 10^3/uL (130-400); RED BLOOD COUNT 3.84 10^6/uL (4.35-5.85); RED CELL DISTRIBUTION WIDTH 15.5 % (10.0-14.5); WHITE BLOOD COUNT 14.3 10^3/uL (4.3-11.0)
[2017-11-12 04:32] LABS: BUN/CREATININE RATIO 6; CARBON DIOXIDE 17 MMOL/L (21-32); CHLORIDE 109 MMOL/L (98-107); CREATININE SERUM 0.67 MG/DL (0.60-1.30); GFR ESTIMATED > 60; GLUCOSE 75 MG/DL (70-105); MAGNESIUM 1.4 MG/DL (1.8-2.4); PHOSPHORUS 2.5 MG/DL (2.3-4.7); POTASSIUM 3.3 MMOL/L (3.6-5.0); SODIUM 137 MMOL/L (135-145)
[2017-11-12] MEDS: POTASSIUM CL 10MEQ/50ML IVPB 50 ML IV SCH ×5 (05:23→08:05)
[2017-11-12] MEDS: MAGNESIUM 1 GM/100 ML IVPB 100 ML IV SCH ×3 (05:31→06:32)
[2017-11-12] MEDS ORDERED: HALOPERIDOL 5 MG/ML (HALDOL) AMP ONE (05:51)
[2017-11-12] MEDS ORDERED: morphine INJ 10 MG/ML 1ML (SYR OR VIAL) ONE (05:51)
[2017-11-12] MEDS: KCL 20 MEQ TAB (K-DUR) PO SCH (06:00)
[2017-11-12] MEDS: inSUlin (REGULAR) HUMAN 1 UNIT/0.01 ML (CHARGE PER UNIT) SC SCH ×4 (06:00→18:27)
[2017-11-12] MEDS ORDERED: NS (IVPB) 50 ML ONE (06:03)
[2017-11-12] MEDS ORDERED: morphine INJ 4 MG/ML 1 ML (VIAL/SYRINGE) IVP PRN (06:15)
[2017-11-12] MEDS ORDERED: DEXMEDETOMIDINE INJECTION 200 MCG in NS (IVPB) 50 ML IV SCH (06:15)
[2017-11-12] MEDS ORDERED: LORazepam INJ 2 MG/ML (ATIVAN) VIAL IVP PRN ×2 (06:15→06:45)
[2017-11-12] MEDS ORDERED: HALOPERIDOL 5 MG/ML (HALDOL) AMP IV PRN (06:15)
--- NOTE | 2017-11-12 06:26 | Pulmonary Progress Note ---
Subjective Time Seen by Provider: 06:30 Subjective/Events-last exam Pt is acutely psychotic, combative, and agitated. She is yelling out she wants to go home however she presented with a suicidal attempt and has not been evaluated by psych yet. All attempts have been made to talk patient down and sedation meds have been given. Pt is a flight risk and a risk to herself and staff. Pt placed in 4 point chris and sedation meds given. Exam Exam Vital Signs Date Time Temp Pulse Resp B/P (MAP) Pulse Ox O2 Delivery O2 Flow Rate FiO2 11/12/17 04:00 97 Room Air 11/12/17 01:00 65 11/12/17 00:00 88 103/72 (82) Room Air 11/12/17 00:00 98.7 Room Air 11/12/17 00:00 99 Room Air 11/11/17 23:00 101 112/74 (87) Room Air 11/11/17 22:00 90 121/76 (91) Room Air 11/11/17 21:00 82 18 110/75 (87) Room Air 11/11/17 20:00 100.1 82 28 114/85 (95) 99 Room Air 11/11/17 20:00 99 Room Air 11/11/17 19:00 74 20 120/83 (95) Room Air 11/11/17 19:00 67 11/11/17 18:00 84 21 112/78 (89) 96 Room Air 11/11/17 17:00 84 22 109/69 (82) 96 Room Air 11/11/17 16:00 Room Air 11/11/17 16:00 71 33 122/90 (101) 96 Room Air 11/11/17 16:00 100.3 Room Air 11/11/17 15:00 67 23 113/79 (90) 96 Room Air 11/11/17 14:00 67 11 116/86 (96) 95 Room Air 11/11/17 13:00 96 13 117/75 (89) 98 Room Air 11/11/17 13:00 81 11/11/17 12:00 Room Air 11/11/17 12:00 84 7 106/64 (78) 99 Room Air 11/11/17 12:00 98.2 Room Air 11/11/17 11:00 85 17 106/67 (80) 98 Room Air 11/11/17 10:00 87 13 101/58 (72) 100 Room Air 11/11/17 09:00 90 14 108/63 (78) 100 Room Air 11/11/17 08:00 98.8 Room Air 11/11/17 08:00 80 15 112/76 (88) 100 Room Air 11/11/17 08:00 Room Air 11/11/17 07:00 96 11 111/65 (80) 100 Mechanical Ventilator 21.00 11/11/17 07:00 86 I & O 11/12/17 07:00 Intake Total 3090 ml Output Total 3750 ml Balance -660 ml General Appearance: No Apparent Distress, WD/WN, Anxious, Other (combative ) HEENT: PERRL/EOMI, Pharynx Normal (ET tube in place) Neck: Full Range of Motion, Non Tender, Supple Respiratory: Chest Non Tender, Lungs Clear, No Accessory Muscle Use, No Respiratory Distress, No Accessory Muscle Use Cardiovascular: Regular Rate, Rhythm, No Edema, No Gallop, No JVD, No Murmur, Normal Peripheral Pulses Capillary Refill: Less Than 3 Seconds Gastrointestinal: normal bowel sounds, non tender, soft Extremity: Normal Capillary Refill, Normal Inspection, Normal Range of Motion, Non Tender, No Calf Tenderness Skin: Normal Color, Warm/Dry Lymphatic: No Adenopathy Results Lab Laboratory Tests 11/10/17 12:40 11/11/17 04:00 11/11/17 07:10 11/11/17 09:57 11/12/17 03:23 Assessment/Plan Assessment/Plan Agitation/psychosis-- Pt is hitting kicking and trying to bite because she wants to leave AMA -Pt can not leave AMA until evaluated by behavior health -Will use leather restraints to ensure pt is safe to herself and staff -Will increase sedation meds for agitation -Risperdal 1mg BID PO ATC - if pt will take -Haldol IV 2mg Q4 PRN for agitation -Ativan 1-2mg IV Q2 PRN for agitation -Morphine 2-4mg IV Q2 PRN for agitation/discomfort -Precedex gtt started Depression with suicidal attempt and Benadryl OD -Needs behavior health evaluation and in patient psych Pt is suicidal - needs in patient psych Microcytic Anemia -monitor H&H -check gastric occult -Check Iron studies -Haptoglobin -peripheral smear -continue Protonix -decrease IVF Acute seizures -Ativan PRN -Continue Keppra -check urine preg test Metabolic lactic acidosis -repeat labs -IVF with NS -Monitor Electrolyte disturbance -replace Asterjuanna abuse -education 60 min ICU time spent with patient and medical staff. Clinical Quality Measures DVT/VTE Risk/Contraindication: Risk Factor Score Per Nursin RFS Level Per Nursing on Admit: 3=High TYSON GONZALEZ DO Nov 12, 2017 06:26
[2017-11-12 07:30] LABS: ABSOLUTE RETIC # 45 10e9/L (24-90); BASOPHILS # (AUTO) 0.1 10^3/uL (0.0-0.1); BASOPHILS % (AUTO) 1 % (0-10); EOSINOPHILS # (AUTO) 0.1 10^3/uL (0.0-0.3); EOSINOPHILS % (AUTO) 1 % (0-10); HEMATOCRIT 24 % (35-52); HEMOGLOBIN 7.8 G/DL (11.5-16.0); LYMPHOCYTES # (AUTO) 1.8 X 10^3 (1.0-4.0); LYMPHOCYTES % (AUTO) 16 % (12-44); MEAN CORPUSCULAR HEMOGLOBIN 20 PG (25-34); MEAN CORPUSCULAR HGB CONC 33 G/DL (32-36); MEAN CORPUSCULAR VOLUME 62 FL (80-99); MEAN PLATELET VOLUME 9.7 FL (7.4-10.4); MONOCYTES # (AUTO) 0.7 X 10^3 (0.0-1.0); MONOCYTES % (AUTO) 6 % (0-12); NEUTROPHILS # (AUTO) 8.8 X 10^3 (1.8-7.8); NEUTROPHILS % (AUTO) 77 % (42-75); PLATELET COUNT 265 10^3/uL (130-400); RED BLOOD COUNT 3.86 10^6/uL (4.35-5.85); RED CELL DISTRIBUTION WIDTH 15.6 % (10.0-14.5); RETICULOCYTE % 1.16 % (0.50-2.40); WHITE BLOOD COUNT 11.4 10^3/uL (4.3-11.0)
--- NOTE | 2017-11-12 07:51 | Diagnostic Imaging Report ---
INDICATION: Post extubation with recent overdose. Comparison is made with prior examination from 11/11/2017. FINDINGS: The heart size, mediastinal configuration, and pulmonary vascularity are within normal limits. There is no pleural effusion, pneumothorax, or pneumonia. The osseous structures are unremarkable. IMPRESSION: No acute cardiopulmonary abnormality. Dictated by: Dictated on workstation # [id number]
[2017-11-12] MEDS: risperiDONE 1 MG (RisperDAL) TAB PO SCH ×2 (07:59→20:04)
[2017-11-12] MEDS: PANTOPRAZOLE 40 MG/10 ML (PROTONIX) VIAL IV SCH (07:59)
[2017-11-12 08:10] LABS: ANISOCYTOSIS SLIGHT; BAND NEUTROPHILS 0 %; BASOPHILS % (MANUAL) 0 %; ELLIPT/OVALOCYTES SLIGHT; EOSINOPHILS % (MANUAL) 1 %; HYPOCHROMASIA SLIGHT; LYMPHOCYTES % (MANUAL) 15 %; MONOCYTES % (MANUAL) 5 %; NEUTROPHILS % (MANUAL) 79 %
[2017-11-12] MEDS ORDERED: risperiDONE 0.25 MG (RisperDAL) TAB PO SCH (09:00)
--- NOTE | 2017-11-12 09:19 | Progress Note (SOAP) ---
Subjective Subjective/Events-last exam Patient was combative overnight. She has been having spells of psychosis. At current she is out of 4-point restraint. She is communicating well. Review of Systems Date Seen by Provider: Nov 12, 2017 Time Seen by Provider: 07:05 Objective Exam Last Set of Vital Signs Vital Signs Date Time Temp Pulse Resp B/P (MAP) Pulse Ox O2 Delivery O2 Flow Rate FiO2 11/12/17 08:00 97 Room Air 11/12/17 07:00 85 11/12/17 06:00 114/70 (85) 11/12/17 05:00 25 11/12/17 04:05 100.2 11/11/17 07:00 21.00 11/11/17 04:31 21 Capillary Refill : Less Than 3 Seconds I&O Intake and Output 11/12/17 00:00 Intake Total 1995 ml Output Total 4025 ml Balance -2030 ml Intake Oral 1000 ml IV Total 995 ml Output Urine Total 3525 ml Gastric Drainage Total 500 ml General: No Acute Distress (But is somewhat groggy) Lungs: Clear to Auscultation Heart: Regular Rate Abdomen: Soft Skin: No Rashes Results/Procedures Lab Laboratory Tests 11/11/17 09:57: Hemoglobin 8.7L, Hematocrit 27L 11/11/17 12:02: Glucometer 105 11/11/17 18:37: Glucometer 83 11/11/17 23:54: Glucometer 83 11/12/17 03:23: White Blood Count 14.3H, Red Blood Count 3.84L, Hemoglobin 7.7L, Hematocrit 24L , Mean Corpuscular Volume 62L, Mean Corpuscular Hemoglobin 20L, Mean Corpuscular Hemoglobin Concent 33, Red Cell Distribution Width 15.5H, Platelet Count 298, Mean Platelet Volume 10.9H, Neutrophils (%) (Auto) 75, Lymphocytes (% ) (Auto) 18, Monocytes (%) (Auto) 7, Eosinophils (%) (Auto) 1, Basophils (%) ( Auto) 1, Neutrophils # (Auto) 10.7H, Lymphocytes # (Auto) 2.5, Monocytes # (Auto ) 0.9, Eosinophils # (Auto) 0.1, Basophils # (Auto) 0.1, Sodium Level 137, Potassium Level 3.3L, Chloride Level 109H, Carbon Dioxide Level 17L, Anion Gap 11, Blood Urea Nitrogen 4L, Creatinine 0.67, Estimat Glomerular Filtration Rate > 60, BUN/Creatinine Ratio 6, Glucose Level 75, Calcium Level 8.0L, Phosphorus Level 2.5, Magnesium Level 1.4L 11/12/17 07:17: White Blood Count 11.4H, Red Blood Count 3.86L, Hemoglobin 7.8L, Hematocrit 24L , Mean Corpuscular Volume 62L, Mean Corpuscular Hemoglobin 20L, Mean Corpuscular Hemoglobin Concent 33, Red Cell Distribution Width 15.6H, Platelet Count 265, Mean Platelet Volume 9.7, Neutrophils (%) (Auto) 77H, Lymphocytes (% ) (Auto) 16, Monocytes (%) (Auto) 6, Eosinophils (%) (Auto) 1, Basophils (%) ( Auto) 1, Neutrophils # (Auto) 8.8H, Lymphocytes # (Auto) 1.8, Monocytes # (Auto ) 0.7, Eosinophils # (Auto) 0.1, Basophils # (Auto) 0.1, Neutrophils % (Manual) 79, Lymphocytes % (Manual) 15, Monocytes % (Manual) 5, Eosinophils % (Manual) 1 , Basophils % (Manual) 0, Band Neutrophils 0, Hypochromasia SLIGHT, Anisocytosis SLIGHT, Elliptocytes SLIGHT, Absolute Reticulocyte Count 45, Percent Reticulocyte Count 1.16 Microbiology 11/10/17 Blood Culture - Preliminary, Resulted No growth Radiology Date of Exam: 11/10/17 CT HEAD WO PROCEDURE: CT head without contrast. TECHNIQUE: Multiple contiguous axial images were obtained through the brain without the use of intravenous contrast. INDICATION: Overdose. Patient on ventilator. Comparison: None Findings: No acute intracranial hemorrhage, mass effect or edema is demonstrated. Oneal-white junction is preserved. Ventricles appear normal. No focal abnormalities demonstrated. The paranasal sinuses and mastoids are clear as visualized. Impression: No evidence of an acute intracranial abnormality. Date of Exam: 11/10/17 CHEST 1 VIEW, AP/PA ONLY INDICATION: Possible overdose. Intubation. COMPARISON: None. FINDINGS: Single frontal view of the chest is obtained. There is an endotracheal tube present which appears to be in good position with the tip approximately 4.5 cm above the ralph. Nasogastric tube is seen in the stomach. Heart size is normal. The pulmonary vessels appear unremarkable. There is no pneumothorax, mediastinal widening or pleural fluid. The lungs are clear. IMPRESSION: Endotracheal tube appears to be in good position. No acute cardiopulmonary abnormality is demonstrated. Assessment/Plan Assessment/Plan Plan 22 yo F admitted for suicide attempt with intentional ingestion 1. Suicide Attempt with intentional ingestion of Benadryl - Monitor QRS - Possible inpatient Psych transfer 11/12 -Awaiting behavioral health evaluation 2. Seizure - Consider stopping Keppra and continue to monitor - Patient does not have underlying Sz d/o 11/12 -Patient has done well off the Keppra and has had no seizure 3. Acute respiratory failure: Resolved, Extubated this AM 4. Depression FEN: CLD will advance as tolerated DVT: Lovenox Dispo: Continue to monitor in ICU Clinical Quality Measures DVT/VTE Risk/Contraindication: Risk Factor Score Per Nursin RFS Level Per Nursing on Admit: 3=High STEVE CORNEJO MD Nov 12, 2017 09:19
--- NOTE | 2017-11-12 12:26 | Physical Therapy Progress Note ---
Therapy Progress Note Nursing indicated that pt had been extubated and was walking in the room (I). Pt not needed at this time. MARION BUTLER PT Nov 12, 2017 12:26
[2017-11-13 01:24] VITALS: BP 105/64
[2017-11-13 04:00] VITALS: BP 113/74
[2017-11-13 04:45] LABS: BASOPHILS # (AUTO) 0.1 10^3/uL (0.0-0.1); BASOPHILS % (AUTO) 1 % (0-10); EOSINOPHILS # (AUTO) 0.2 10^3/uL (0.0-0.3); EOSINOPHILS % (AUTO) 2 % (0-10); HEMATOCRIT 28 % (35-52); HEMOGLOBIN 9.3 G/DL (11.5-16.0); LYMPHOCYTES # (AUTO) 2.3 X 10^3 (1.0-4.0); LYMPHOCYTES % (AUTO) 20 % (12-44); MEAN CORPUSCULAR HEMOGLOBIN 20 PG (25-34); MEAN CORPUSCULAR HGB CONC 33 G/DL (32-36); MEAN CORPUSCULAR VOLUME 60 FL (80-99); MEAN PLATELET VOLUME 10.4 FL (7.4-10.4); MONOCYTES # (AUTO) 1.1 X 10^3 (0.0-1.0); MONOCYTES % (AUTO) 9 % (0-12); NEUTROPHILS # (AUTO) 7.9 X 10^3 (1.8-7.8); NEUTROPHILS % (AUTO) 68 % (42-75); PLATELET COUNT 371 10^3/uL (130-400); RED BLOOD COUNT 4.62 10^6/uL (4.35-5.85); RED CELL DISTRIBUTION WIDTH 15.8 % (10.0-14.5); WHITE BLOOD COUNT 11.6 10^3/uL (4.3-11.0)
[2017-11-13 05:28] LABS: BUN/CREATININE RATIO 8; CALCIUM 8.8 MG/DL (8.5-10.1); CARBON DIOXIDE 20 MMOL/L (21-32); CHLORIDE 107 MMOL/L (98-107); CREATININE SERUM 0.72 MG/DL (0.60-1.30); GFR ESTIMATED > 60; GLUCOSE 89 MG/DL (70-105); MAGNESIUM 1.7 MG/DL (1.8-2.4); PHOSPHORUS 3.1 MG/DL (2.3-4.7); POTASSIUM 3.1 MMOL/L (3.6-5.0); SODIUM 140 MMOL/L (135-145)
[2017-11-13] MEDS: POTASSIUM CL 10MEQ/50ML IVPB 50 ML IV SCH (05:37)
[2017-11-13] MEDS: MAGNESIUM 1 GM/100 ML IVPB 100 ML IV SCH (05:37)
[2017-11-13] MEDS: KCL 20 MEQ TAB (K-DUR) PO SCH (05:38)
[2017-11-13 08:43] VITALS: BP 118/67
[2017-11-13] MEDS: PANTOPRAZOLE 40 MG/10 ML (PROTONIX) VIAL IV SCH (08:56)
--- NOTE | 2017-11-13 08:59 | Progress Note (SOAP) ---
Subjective Subjective/Events-last exam Patient voices no complaints to me this morning. She is awaiting placement and psychiatric facility Review of Systems Date Seen by Provider: Nov 13, 2017 Time Seen by Provider: 07:15 Objective Exam Last Set of Vital Signs Vital Signs Date Time Temp Pulse Resp B/P (MAP) Pulse Ox O2 Delivery O2 Flow Rate FiO2 11/13/17 08:43 100.2 104 20 118/67 (84) 96 Room Air 11/11/17 07:00 21.00 11/11/17 04:31 21 Capillary Refill : Less Than 3 Seconds I&O Intake and Output 11/13/17 00:00 Intake Total 1995 ml Output Total 6200 ml Balance -4205 ml Intake Oral 1000 ml IV Total 995 ml Output Urine Total 6200 ml General: No Acute Distress Lungs: Clear to Auscultation Heart: Regular Rate Abdomen: Soft Psych/Mental Status: Mood NL (With somewhat flat affect) Results/Procedures Lab Laboratory Tests 11/12/17 12:50: Glucometer 88 11/12/17 20:26: Thyroid Stimulating Hormone (TSH) 0.83 11/13/17 03:55: White Blood Count 11.6H, Red Blood Count 4.62, Hemoglobin 9.3L, Hematocrit 28L, Mean Corpuscular Volume 60L, Mean Corpuscular Hemoglobin 20L, Mean Corpuscular Hemoglobin Concent 33, Red Cell Distribution Width 15.8H, Platelet Count 371, Mean Platelet Volume 10.4, Neutrophils (%) (Auto) 68, Lymphocytes (%) (Auto) 20 , Monocytes (%) (Auto) 9, Eosinophils (%) (Auto) 2, Basophils (%) (Auto) 1, Neutrophils # (Auto) 7.9H, Lymphocytes # (Auto) 2.3, Monocytes # (Auto) 1.1H, Eosinophils # (Auto) 0.2, Basophils # (Auto) 0.1, Sodium Level 140, Potassium Level 3.1L, Chloride Level 107, Carbon Dioxide Level 20L, Anion Gap 13, Blood Urea Nitrogen 6L, Creatinine 0.72, Estimat Glomerular Filtration Rate > 60, BUN/ Creatinine Ratio 8, Glucose Level 89, Calcium Level 8.8, Phosphorus Level 3.1, Magnesium Level 1.7L Microbiology 11/10/17 Blood Culture - Preliminary, Resulted No growth Radiology Date of Exam: 11/10/17 CT HEAD WO PROCEDURE: CT head without contrast. TECHNIQUE: Multiple contiguous axial images were obtained through the brain without the use of intravenous contrast. INDICATION: Overdose. Patient on ventilator. Comparison: None Findings: No acute intracranial hemorrhage, mass effect or edema is demonstrated. Oneal-white junction is preserved. Ventricles appear normal. No focal abnormalities demonstrated. The paranasal sinuses and mastoids are clear as visualized. Impression: No evidence of an acute intracranial abnormality. Date of Exam: 11/10/17 CHEST 1 VIEW, AP/PA ONLY INDICATION: Possible overdose. Intubation. COMPARISON: None. FINDINGS: Single frontal view of the chest is obtained. There is an endotracheal tube present which appears to be in good position with the tip approximately 4.5 cm above the ralph. Nasogastric tube is seen in the stomach. Heart size is normal. The pulmonary vessels appear unremarkable. There is no pneumothorax, mediastinal widening or pleural fluid. The lungs are clear. IMPRESSION: Endotracheal tube appears to be in good position. No acute cardiopulmonary abnormality is demonstrated. Assessment/Plan Assessment/Plan Plan 22 yo F admitted for suicide attempt with intentional ingestion 1. Suicide Attempt with intentional ingestion of Benadryl - Monitor QRS - Possible inpatient Psych transfer 11/12 -Awaiting behavioral health evaluation 11/13 -Evaluation completed and awaiting acceptance from psychiatric facility -Cardiology consultation pending. TSH within normal range at 0.83 2. Seizure - Consider stopping Keppra and continue to monitor - Patient does not have underlying Sz d/o 11/12 -Patient has done well off the Keppra and has had no seizure 3. Acute respiratory failure: Resolved, Extubated this AM 4. Depression FEN: CLD will advance as tolerated DVT: Lovenox Dispo: Continue to monitor in ICU Clinical Quality Measures DVT/VTE Risk/Contraindication: Risk Factor Score Per Nursin RFS Level Per Nursing on Admit: 3=High STEVE CORNEJO MD Nov 13, 2017 08:59
[2017-11-13] MEDS ORDERED: ACETAMINOPHEN 325 MG TABLET/CAPLET (TYLENOL) PO ONE (09:00)
[2017-11-13] MEDS ORDERED: KCL 20 MEQ TAB (K-DUR) PO ONE ×2 (09:00→11:00)
[2017-11-13] MEDS: risperiDONE 1 MG (RisperDAL) TAB PO SCH (09:02)
[2017-11-13 10:59] VITALS: BP 99/64
--- NOTE | 2017-11-13 12:25 | Consultation-Cardiology ---
HPI-Cardiology Cardiology Consultation: Date of Consultation 11/13/17 Time Seen by Provider: 11:45 Date of Admission Attending Physician Lynne Navarro MD Admitting Physician No,Local Physician Consulting Physician RONNELL LEAL MD, MA, FACP, FACC, FSCAI, CCDS HPI: Chief Complaint: Reason for consultation: Sinus tachycardia 22 yo woman admitted with Benadryl overdose for suicide attempt. Had had ac resp failure and was on mech vent. No off vent. Has had seizures that have been managed by the Med and ICU Services. Currently, does not report any symptoms. Denies cp or palp or syncope or shortness of breath or ankle swelling Review of Systems-Cardiology Review of Systems Constitutional: No chills, No fever, No weight loss, No weight gain Eyes: No vision change Ears/Nose/Throat: No ear discharge, No nasal drainage, No recent hearing loss Respiratory: As described under HPI Cardiovascular: As described under HPI Gastrointestinal: No diarrhea, No nausea, No vomiting Genitourinary: No dysuria, No hematuria, other (reports chronic menorrhagia) Musculoskeletal: No back pain, No joint pain Skin: No rash, No ulcerations Psychiatric/Neurological: As described under HPI, No focal weakness, No syncope Hematologic: No bleeding abnormalities HVI-Qkzusk-Zxolgu Hx Patient Social History Alcohol Use: Occasionally Uses Recreational Drug Use: No Smoking Status: Current Everyday Smoker Former smoker/When Quit: Jul 23, 2015 Type Used: Cigarettes Recent Foreign Travel: No Recent Infectious Disease Expo: No Physical Abuse Screen: Yes Sexual Abuse: No Immunizations Up To Date Tetanus Booster (TDap): Unknown Past Medical History PMH As described under Assessment. Family Medical History Family Medical History: She does not report fam h/o or early CAD or SCD Family History: Arthritis G8 SISTER Asthma G8 SISTER Cataracts G8 BROTHER Diabetes mellitus 19 MOTHER Hypertension G8 BROTHER Allergies and Home Medications Allergies Coded Allergies: No Known Drug Allergies (Unverified , 11/28/11) Home Medications No Active Prescriptions or Reported Meds Physical Exam-Cardiology Physical Exam Vital Signs/I&O Vital Sign - Last 12Hours 11/13/17 11/13/17 11/13/17 11/13/17 01:00 01:24 02:00 03:00 B/P (MAP) 105/64 (78) O2 Delivery Room Air Room Air Room Air Room Air 11/13/17 11/13/17 11/13/17 11/13/17 04:00 04:00 07:00 08:43 Temp 98.2 100.2 Pulse 112 86 104 Resp 21 20 B/P (MAP) 113/74 (87) 118/67 (84) Pulse Ox 96 O2 Delivery Room Air Room Air Room Air 11/13/17 11/13/17 11/13/17 11/13/17 09:00 10:11 10:11 10:59 Temp 98.9 98.9 Pulse 100 Resp 14 B/P (MAP) 99/64 (76) O2 Delivery Room Air Room Air 11/13/17 11:00 O2 Delivery Room Air Intake and Output 11/12/17 23:59 Intake Total 850 ml Output Total 2700 ml Balance -1850 ml Capillary Refill : Less Than 3 Seconds Constitutional: AAO x 3, other (Thin-appearing) HEENT: PERRL, EOMI, hearing is well preserved, No xanthelasmas are seen Neck: No carotid bruit, carotid pulses are 2 + bilaterally, with good upstrokes Respiratory: No accessory muscle use, lungs clear to percussion, lungs clear to auscultation Cardiovascular: regular rate-rhythm, S1 and S2, No systolic murmur Gastrointestinal: No tender, soft, No guarding, No rebound, No audible bowel sounds Extremities: No clubbing, No cyanosis, No significant edema Neurologic/Psychiatric: grossly intact, power is 5/5 both on sides Skin: No rash on exposed areas, No ulcerations on exposed areas Lymphatic: no adenopathy Data Review Labs Laboratory Tests 11/12/17 12:50: Glucometer 88 11/12/17 20:26: Thyroid Stimulating Hormone (TSH) 0.83 11/13/17 03:55: White Blood Count 11.6H, Red Blood Count 4.62, Hemoglobin 9.3L, Hematocrit 28L, Mean Corpuscular Volume 60L, Mean Corpuscular Hemoglobin 20L, Mean Corpuscular Hemoglobin Concent 33, Red Cell Distribution Width 15.8H, Platelet Count 371, Mean Platelet Volume 10.4, Neutrophils (%) (Auto) 68, Lymphocytes (%) (Auto) 20 , Monocytes (%) (Auto) 9, Eosinophils (%) (Auto) 2, Basophils (%) (Auto) 1, Neutrophils # (Auto) 7.9H, Lymphocytes # (Auto) 2.3, Monocytes # (Auto) 1.1H, Eosinophils # (Auto) 0.2, Basophils # (Auto) 0.1, Sodium Level 140, Potassium Level 3.1L, Chloride Level 107, Carbon Dioxide Level 20L, Anion Gap 13, Blood Urea Nitrogen 6L, Creatinine 0.72, Estimat Glomerular Filtration Rate > 60, BUN/ Creatinine Ratio 8, Glucose Level 89, Calcium Level 8.8, Phosphorus Level 3.1, Magnesium Level 1.7L Microbiology 11/10/17 Blood Culture - Preliminary, Resulted No growth Laboratory Tests 11/12/17 03:23 11/12/17 07:17 11/13/17 03:55 A/P-Cardiology Assessment/Admission Diagnosis Sinus tachycardia, likely due to significant anemia of undetermined etiology Menorrhagia, by history. This may have contributed to her anemia Attempted suicide with Benadryl overdose H/o occ tobacco and marijuana use Discussion and Recomendations * We recommend evaluation and treatment of anemia * We recommend evaluation and treatment of electrolyte anemia * We also recommend good nutrition and hydration * The above measures are likely to correct anemia * There do not appear to be any primary cardiac abnormalities. There is no cardiac contraindication to transfer to [facility] once above issues have been evaluated and addressed by the Medical Service * We have recommend tobacco and street drug avoidance to the patient Clinical Quality Measures DVT/VTE Risk/Contraindication: Risk Factor Score Per Nursin RFS Level Per Nursing on Admit: 3=High RONNELL LEAL MD FACP [facility] CCDS Nov 13, 2017 12:25
[2017-11-13] MEDS ORDERED: FERROUS SULF 325 MG (IRON) TAB PO NR (12:30)
[2017-11-13] MEDS: NS IV 1000 ML 1,000 ML IV SCH (13:13)
[2017-11-13 14:12] VITALS: BP 116/70
[2017-11-13 16:49] VITALS: BP 124/83
[2017-11-13] MEDS ORDERED: FERROUS SULF 325 MG (IRON) TAB PO SCH (17:00)
== END 2017-11-13 17:25 | DRG 917 ==
LOC: EDUNIT# 12:17 → ER 12:19 → ICU 13:45
PROVIDERS: ADMIT Family Medicine; ATTEND Family Medicine
PROC: 5A1935Z Respiratory Ventilation, Less than 24 Consecutive Hours (ICD-10-PCS; principal; 2017-11-10)
DX: T45.0X2A Poisoning by antiallergic and antiemetic drugs, intentional self-harm, initial encounter (principal); J96.00 Acute respiratory failure, unspecified whether with hypoxia or hypercapnia; E87.2 Acidosis; F17.210 Nicotine dependence, cigarettes, uncomplicated; F32.9 Major depressive disorder, single episode, unspecified; F41.9 Anxiety disorder, unspecified; R56.9 Unspecified convulsions; F12.10 Cannabis abuse, uncomplicated; D64.9 Anemia, unspecified; E87.8 Other disorders of electrolyte and fluid balance, not elsewhere classified
CPT/HCPCS: 36415; 51702; 70450; 71045; 80048; 80053; 80306; 80320; 80329; 81000; 82150; 82550; 82728; 82805; 82962; 83010; 83540; 83605; 83690; 83735; 84100; 84443; 84703; 85007; 85014; 85018; 85025; 85027; 85045; 85610; 85730; 87040; 93005; 94002; 94003; 96361; 96365; 96366; 96375